=== PATIENT | male | born 1980 | race Caucasian/White ===

== ENCOUNTER 2020-01-08 13:11 | Inpatient (IN) | payer OTHER ==
[~2020-01-08] VITALS: Ht 177.8 cm; Wt 70.3 kg
[2020-01-08 14:36] LABS: BASOPHILS 0.4 % (0-2); HEMATOCRIT 38.2 % (42.0-54.0); HEMOGLOBIN 12.7 g/dL (13.5-17.5); IMMATURE GRANULOCYTES 0.6 % (0-5); LYMPHOCYTES 14.1 % (15-50); MCH 30.9 pg (26.0-34.0); MCHC 33.2 g/dL (31.0-37.0); MCV 92.9 fL (80.0-100.0); MEAN PLATELET VOLUME 9.6 fL (7.4-10.4); MONOCYTES 5.4 % (2-11); NEUTROPHILS 75.5 % (40-80); RBC 4.11 10x6/uL (4.20-6.10); RDW 12.4 % (11.5-14.5); WBC 8.3 10x3/uL (4.8-10.8)
[2020-01-08 14:39] LABS: PLATELET COUNT 284 10x3/uL (130-400)
[2020-01-08 14:43] LABS: ANION GAP 13.2 mmol/L (8-16); CALCIUM 8.9 mg/dL (8.5-10.1); CARBON DIOXIDE 23.8 mmol/L (21.0-32.0); CREATININE - SERUM 5.4 mg/dL (0.6-1.3)
[2020-01-08 14:47] LABS: ALBUMIN 3.2 g/dL (3.4-5.0); BILIRUBIN - TOTAL 0.16 mg/dL (0.2-1.3); PROTEIN - SERUM 7.8 g/dL (6.4-8.2)
--- NOTE | 2020-01-08 15:30 | NUR ---
URINE SENT TO THE LAB.
[2020-01-08 15:35] VITALS: BP 174/111
[2020-01-08 15:43] LABS: BILIRUBIN NEGATIVE (NEGATIVE); GLUCOSE NEGATIVE (NEGATIVE); KETONE NEGATIVE (NEGATIVE); NITRITE NEGATIVE (NEGATIVE); UROBILINOGEN NORMAL (NORMAL)
[2020-01-08 15:47] LABS: BACTERIA FEW /hpf (NEGATIVE); EPITHELIAL CELLS NSEEN /hpf (0-5); RED CELLS - URINE 0-5 /hpf (0-5); WHITE CELLS - URINE 0-5 /hpf (NEGATIVE)
[2020-01-08 15:50] LABS: UDS - AMPHET NEGATIVE QUAL (NEGATIVE); UDS - BARB NEGATIVE QUAL (NEGATIVE); UDS - BENZO NEGATIVE QUAL (NEGATIVE); UDS - COCAINE NEGATIVE QUAL (NEGATIVE); UDS - OPIATE NEGATIVE QUAL (NEGATIVE); UDS - PCP NEGATIVE QUAL (NEGATIVE); UDS - THC POSITIVE QUAL (NEGATIVE)
[2020-01-08 16:30] VITALS: BP 150/95
[2020-01-08 17:30] VITALS: BP 174/79
[2020-01-08 18:30] VITALS: BP 169/96
--- NOTE | 2020-01-08 18:45 | NUR ---
REPORT CALLED TO NICOLAS APPLE.
--- NOTE | 2020-01-08 19:12 | NUR ---
REPORT TO NICOLAS YANG.
[2020-01-08 20:00] VITALS: BP 151/82
--- NOTE | 2020-01-08 21:00 | NUR ---
ASSUMED CARE OF PATIENT, PATIENT TRANSFERRED TO ROOM, PATIENT AAOX4, NO DISTRESS NOTED, REDNESS TO RIGHT LOWER LEG, FAMILY X1 AT BS, WILL CONTINUE TO MONITOR PATIENT, IV INFUSING WITHOUT COMPLICATIONS, CALL LIGHT WITHIN REACH
[2020-01-08 21:23] VITALS: BP 151/82; BMI 22.2
[2020-01-09] VITALS: BP 143/83
[2020-01-09 01:22] LABS: INR 0.92 (0.85-1.17); PROTIME 12.3 SECONDS (11.6-15.0)
[2020-01-09 04:00] VITALS: BP 135/84
[2020-01-09 06:00] LABS: BASOPHILS 0.5 % (0-2); EOSINOPHILS 5.4 % (0-7); HEMATOCRIT 34.7 % (42.0-54.0); HEMOGLOBIN 11.6 g/dL (13.5-17.5); IMMATURE GRANULOCYTES 0.5 % (0-5); LYMPHOCYTES 26.9 % (15-50); MCHC 33.4 g/dL (31.0-37.0); MCV 92.8 fL (80.0-100.0); MEAN PLATELET VOLUME 9.6 fL (7.4-10.4); MONOCYTES 10.4 % (2-11); NEUTROPHILS 56.3 % (40-80); PLATELET COUNT 257 10x3/uL (130-400); RBC 3.74 10x6/uL (4.20-6.10); RDW 12.4 % (11.5-14.5); WBC 8.5 10x3/uL (4.8-10.8)
[2020-01-09 06:32] LABS: ALBUMIN 2.6 g/dL (3.4-5.0); BILIRUBIN - TOTAL 0.14 mg/dL (0.2-1.3); CALCIUM 8.5 mg/dL (8.5-10.1); CARBON DIOXIDE 23.7 mmol/L (21.0-32.0); CREATININE - SERUM 4.7 mg/dL (0.6-1.3); MAGNESIUM - SERUM 1.9 mg/dL (1.8-2.4); PROTEIN - SERUM 6.6 g/dL (6.4-8.2)
[2020-01-09 06:44] LABS: POTASSIUM - SERUM 3.7 mmol/L (3.5-5.1)
[2020-01-09 08:00] VITALS: BP 137/72
--- NOTE | 2020-01-09 09:00 | NUR ---
ASSESSMENT PER FLOW SHEET. PATIENT IS WITHOUT DISTRESS.MED PER MAR FOR HEADACHE.CALL LIGHT IN REACH
[2020-01-09 12:00] VITALS: BP 142/88
[2020-01-09 14:45] VITALS: Ht 177.8 cm; Wt 70.3 kg
[2020-01-09 15:35] LABS: BILIRUBIN NEGATIVE (NEGATIVE); GLUCOSE NEGATIVE (NEGATIVE); KETONE NEGATIVE (NEGATIVE); NITRITE NEGATIVE (NEGATIVE); UROBILINOGEN NORMAL (NORMAL)
[2020-01-09 15:40] LABS: CREATININE - URINE 35.7 mg/dL (30-125); PROTEIN - URINE 108.3 mg/dL (0.0-11.9)
[2020-01-09 16:00] VITALS: BP 148/86
--- NOTE | 2020-01-09 17:48 | NUR ---
REMAINS WITHOUT NEEDS,WITHOUT CHANGE. CONT PLAN OF CARE
--- NOTE | 2020-01-09 19:26 | NUR ---
ASSUMED CARE OF PATIENT AT 1900, PATIENT AAOX4, NO DISTRESS NOTED, REDNESS TO RIGHT FOOT, PATIENT OOB AD DINORA, DENIES NEEDS AT THIS TIME, WILL CONTINUE TO MONITOR PATIENT, CALL LIGHT WITHIN REACH
[2020-01-09 20:00] VITALS: BP 146/92
[2020-01-10 04:00] VITALS: BP 143/96
[2020-01-10 05:22] LABS: BASOPHILS 0.5 % (0-2); EOSINOPHILS 5.6 % (0-7); HEMATOCRIT 34.5 % (42.0-54.0); HEMOGLOBIN 11.4 g/dL (13.5-17.5); IMMATURE GRANULOCYTES 0.4 % (0-5); LYMPHOCYTES 23.5 % (15-50); MCV 93.8 fL (80.0-100.0); MEAN PLATELET VOLUME 9.5 fL (7.4-10.4); MONOCYTES 8.4 % (2-11); NEUTROPHILS 61.6 % (40-80); PLATELET COUNT 251 10x3/uL (130-400); RBC 3.68 10x6/uL (4.20-6.10); RDW 12.5 % (11.5-14.5); WBC 8.3 10x3/uL (4.8-10.8)
[2020-01-10 05:33] LABS: COMPLEMENT C4 18.2 mg/dL (17.4-52.2)
[2020-01-10 05:51] LABS: ALBUMIN 2.4 g/dL (3.4-5.0); ANION GAP 11.6 mmol/L (8-16); BILIRUBIN - TOTAL 0.18 mg/dL (0.2-1.3); CALCIUM 8.4 mg/dL (8.5-10.1); CARBON DIOXIDE 26.3 mmol/L (21.0-32.0); CREATININE - SERUM 4.4 mg/dL (0.6-1.3); MAGNESIUM - SERUM 1.9 mg/dL (1.8-2.4); PHOSPHOROUS 5.8 mg/dL (2.5-4.9); POTASSIUM - SERUM 3.9 mmol/L (3.5-5.1); PROTEIN - SERUM 6.1 g/dL (6.4-8.2)
[2020-01-10 06:11] LABS: ERYTHROCYTE SEDIMENTATION RATE 66 mm/hr (0-15)
--- NOTE | 2020-01-10 09:00 | NUR ---
ASSESSMENT PER FLOW SHEET. PATIENT IS WITHOUT DISTRESS.CALL LIGHT IN REACH
[2020-01-10 09:51] VITALS: BP 123/72
[2020-01-10 13:32] VITALS: BP 153/94
--- NOTE | 2020-01-10 16:11 | NUR ---
HAS REMAINED WITHOUT SIGNS OF PAIN. HAS AMBULATED IN [place].MONITOR
[2020-01-10 16:45] VITALS: BP 164/96
[2020-01-10 20:00] VITALS: BP 142/84
--- NOTE | 2020-01-11 03:04 | NUR ---
I have reviewed this patient and I concur with the Shift Assessment completed by the Licensed Practical Nurse today this shift.
[2020-01-11 04:00] VITALS: BP 122/64
[2020-01-11 05:58] LABS: BASOPHILS 0.5 % (0-2); EOSINOPHILS 5.9 % (0-7); HEMATOCRIT 31.5 % (42.0-54.0); HEMOGLOBIN 10.3 g/dL (13.5-17.5); IMMATURE GRANULOCYTES 0.5 % (0-5); LYMPHOCYTES 24.3 % (15-50); MCH 30.3 pg (26.0-34.0); MCHC 32.7 g/dL (31.0-37.0); MCV 92.6 fL (80.0-100.0); MEAN PLATELET VOLUME 9.4 fL (7.4-10.4); MONOCYTES 8.4 % (2-11); NEUTROPHILS 60.4 % (40-80); PLATELET COUNT 255 10x3/uL (130-400); RDW 12.6 % (11.5-14.5); WBC 8.4 10x3/uL (4.8-10.8)
[2020-01-11 06:19] LABS: ALBUMIN 2.4 g/dL (3.4-5.0); ANION GAP 10.5 mmol/L (8-16); CALCIUM 7.7 mg/dL (8.5-10.1); CREATININE - SERUM 4.6 mg/dL (0.6-1.3); MAGNESIUM - SERUM 1.9 mg/dL (1.8-2.4); POTASSIUM - SERUM 3.5 mmol/L (3.5-5.1); PROTEIN - SERUM 5.8 g/dL (6.4-8.2)
[2020-01-11 06:24] LABS: BILIRUBIN - TOTAL 0.07 mg/dL (0.2-1.3)
--- NOTE | 2020-01-11 07:15 | NUR ---
REC'D IN BED WALKING ROUND AWAKE AND ALERT. RESP EVEN AND UNLABORED WITH NO DISTRESS NOTED. CAN EXPRESS NEEDS AND WANTS. NO C/O NOTED OR VOICED. ASSESSMENT COMPLETED. C/L IN REACH AT BEDSIDE.
[2020-01-11 09:12] VITALS: BP 129/72
[2020-01-11 10:12] LABS: ANA REFLEX - DIRECT Negative (Negative)
[2020-01-11] MEDS ORDERED: FLORAJEN3 CAPS460 MG PO (10:59)
[2020-01-11] MEDS ORDERED: NICODERM CQ1 EAC3 TRANSDERM (10:59)
[2020-01-11] MEDS ORDERED: VITAMIN D5000 UNI1 PO (11:00)
[2020-01-11] MEDS ORDERED: AUGMENTIN 875-11 TAB PO (11:01)
--- NOTE | 2020-01-11 12:18 | NUR ---
DC HOME VOICE UNDERSTANDING OF DC ORDERS ALONG WITH AT BEDSIDE. STABLE CONDITION UPON DEPARTURE.
== END 2020-01-11 12:18 | disposition home or self-care (01) | DRG 602 ==
LOC: D.ER 13:11 → D.MS 17:59 → OBSVTIME 17:59 → D.MS 18:01
PROVIDERS: Family Medicine; Internal Medicine; ADMIT Family Medicine; ATTEND Family Medicine
DX: L03.115 Cellulitis of right lower limb (principal); N17.0 Acute kidney failure with tubular necrosis; N18.4 Chronic kidney disease, stage 4 (severe); I12.9 Hypertensive chronic kidney disease with stage 1 through stage 4 chronic kidney disease, or unspecified chronic kidney disease; I25.10 Atherosclerotic heart disease of native coronary artery without angina pectoris; D63.1 Anemia in chronic kidney disease; E87.6 Hypokalemia; F12.90 Cannabis use, unspecified, uncomplicated

== ENCOUNTER 2020-08-18 04:11 | Inpatient (IN) | payer OTHER ==
[~2020-08-18] VITALS: Ht 172.7 cm; Wt 70.9 kg
[2020-08-18] VITALS (9 sets, daily range): BP systolic 131–182; BP diastolic 11–111; Ht 172.7 cm; Wt 70.9 kg
[~2020-08-18 04:11] MED LIST: AUGMENTIN 875-11 TAB PO; CHLORTHALIDONE25 MG PO; FLORAJEN3 CAPS460 MG PO; LEVOFLOXACIN500 MG PO; METOPROLOL TART50 MG PO; NICODERM CQ1 EAC3 TRANSDERM; PROCARDIA XL60 MG PO; SODIUM BICARBO650 MG PO; VITAMIN D5000 UNI1 PO
[2020-08-18 04:55] LABS: BASOPHILS 0.6 % (0-2); IMMATURE GRANULOCYTES 0.3 % (0-5); LYMPHOCYTE ABS# 1.82 10x3/uL (1.32-3.57); LYMPHOCYTES 16.8 % (15-50); MCH 30.7 pg (26.0-34.0); MCHC 34.8 g/dL (31.0-37.0); MCV 88.3 fL (80.0-100.0); MEAN PLATELET VOLUME 8.8 fL (7.4-10.4); MONOCYTES 8.2 % (2-11); NEUTROPHIL ABS# 7.52 10x3/uL (1.78-5.38); NEUTROPHILS 69.1 % (40-80); RDW 13.3 % (11.5-14.5); WBC 10.9 10x3/uL (4.8-10.8)
[2020-08-18 05:05] LABS: PLATELET COUNT 214 10x3/uL (130-400)
[2020-08-18 05:06] LABS: HEMATOCRIT 26.5 % (42.0-54.0); HEMOGLOBIN 9.2 g/dL (13.5-17.5)
--- NOTE | 2020-08-18 05:28 | NUR ---
URINE SPEC TO LAB
[2020-08-18 05:32] LABS: ALKALINE PHOSPHATASE 70 U/L (30-120); ALT (SGPT) 20 U/L (10-68); CHLORIDE - SERUM 94 mmol/L (98-107); CREATINE KINASE 709 UL (21-232); CREATININE - SERUM 13.2 mg/dL (0.6-1.3); GLUCOSE 112 mg/dL (74-106); MAGNESIUM - SERUM 2.6 mg/dL (1.8-2.4); PROTEIN - SERUM 6.6 g/dL (6.4-8.2); SODIUM 135 mmol/L (136-145); THYROID STIMULATING HORMONE 1.23 uIU/mL (0.36-3.74); eGFR NON AFRICAN AMERICAN 4 mL/min (90-120)
[2020-08-18 05:33] LABS: CALC OSMOLALITY 304 mosm/kg (275-300); POTASSIUM - SERUM 2.9 mmol/L (3.5-5.1); UREA NITROGEN 107 mg/dL (7-18)
[2020-08-18 05:34] LABS: CALCIUM 6.3 mg/dL (8.5-10.1); PRO BNP 81886 pg/mL (0-125); TROPONIN-I 0.197 ng/mL (0.000-0.060)
[2020-08-18 05:35] LABS: CKMB 3.8 U/L (0.0-3.6)
[2020-08-18 05:40] LABS: BILIRUBIN NEGATIVE (NEGATIVE); KETONE NEGATIVE (NEGATIVE); NITRITE NEGATIVE (NEGATIVE); UROBILINOGEN NORMAL mg/dL (< 2)
[2020-08-18 05:41] LABS: UDS - AMPHET NEGATIVE QUAL (NEGATIVE); UDS - BARB NEGATIVE QUAL (NEGATIVE); UDS - BENZO NEGATIVE QUAL (NEGATIVE); UDS - COCAINE NEGATIVE QUAL (NEGATIVE); UDS - OPIATE NEGATIVE QUAL (NEGATIVE); UDS - PCP NEGATIVE QUAL (NEGATIVE); UDS - THC POSITIVE QUAL (NEGATIVE)
[2020-08-18 05:42] LABS: WHITE CELLS - URINE 0-5 HPF (0-1)
--- NOTE | 2020-08-18 06:17 | NUR ---
RECEIVED REPORT, WILL ASSUME CARE OFPT, IV-RFA, PLACED ON TELEMTRY, HAS BEEN WITH OUT HOME FOR A LEAST 3 WEEKS, ASKING FOR A SNACK, PROVIDED APPLESAUCE AND GHAMCRACKERS, BED IS LOW, SRX2, CALL LIGHT IN REACH, WILL CONTINUE PLAN OF CARE
--- NOTE | 2020-08-18 07:20 | NUR ---
RECIEVE REPORT. ALERT AND ORIENTED X4. UP TO BATHROOM. DENIES ANY NEEDS. CONTINUE PLAN OF CARE AND SAFETY PRECAUTIONS.
[2020-08-18 09:58] LABS: CKMB 3.5 U/L (0.0-3.6); CREATINE KINASE 686 UL (21-232)
--- NOTE | 2020-08-18 10:26 | NUR ---
ALERT AND ORIENTED X4. RESTING IN BED. NOTIFY OF ELEVATED TROPONIN 0.170. CONTINUE PLAN OF CARE AND SAFETY PRECAUTIONS. WORK ORDER PLACED PER PATIENT REQUEST FOR AC NOT WORKING.
[2020-08-18 14:35] LABS: PHOSPHOROUS 12.9 mg/dL (2.5-4.9)
[2020-08-18 14:59] LABS: IRON 52 ug/dl (35-150)
[2020-08-18 15:00] LABS: % SATURATION 13 % (15-55); TOTAL IRON BIND CAPACITY 375 ug/dl (260-445); UNSAT IRON BIND CAPACITY 323 ug/dl (150-375)
[2020-08-18 16:26] LABS: CARBON DIOXIDE 21.3 mmol/L (21.0-32.0); CHLORIDE - SERUM 94 mmol/L (98-107); CKMB 3.5 U/L (0.0-3.6); CREATINE KINASE 663 UL (21-232); CREATININE - SERUM 13.7 mg/dL (0.6-1.3); GLUCOSE 111 mg/dL (74-106); MAGNESIUM - SERUM 2.4 mg/dL (1.8-2.4); POTASSIUM - SERUM 3.1 mmol/L (3.5-5.1); SODIUM 133 mmol/L (136-145); eGFR NON AFRICAN AMERICAN 4 mL/min (90-120)
[2020-08-18 16:36] LABS: CALC OSMOLALITY 300 mosm/kg (275-300); UREA NITROGEN 109 mg/dL (7-18)
[2020-08-18 16:37] LABS: CALCIUM 6.4 mg/dL (8.5-10.1); TROPONIN-I 0.169 ng/mL (0.000-0.060)
--- NOTE | 2020-08-18 20:05 | NUR ---
INITIAL ROUNDS AND ASSESSMENT COMPLETED. PT RESTING IN BED. NS @ 100ML/HR INFUSING TO RFA. NONLABORED RESPIRATIONS ON ROOM AIR. SR PER TELEMETRY. PT C/O HEADACHE THAT WILL NOT GO AWAY. HAS ALREADY RECIEVED TYLENOL. CHECKING CURRENT BP, INDICATIONS THAT BP HAS REMAINED ELEVATED ALL DAY. WILL THEN CALL ANP DETAIL TECHNICIAN AND SEE IF NEW PAIN MED CAN BE OBTAINED.
--- NOTE | 2020-08-18 22:26 | NUR ---
SPOKE WITH VANE JAEGER AND REPORTED PT'S CONTINOUS DAY LONG HEADACHE THAT EVEN TYLENOL DOES NOT IMPROVE. RECIEVED NEW ORDERS.
[2020-08-18 22:27] LABS: CKMB 3.3 U/L (0.0-3.6); CREATINE KINASE 560 UL (21-232)
[2020-08-18 22:35] LABS: TROPONIN-I 0.179 ng/mL (0.000-0.060)
--- NOTE | 2020-08-18 23:12 | NUR ---
MEDICATED WITH NORCO 5/325 FOR CONTINUED HEADACHE. IVF INFUSING. POTASSIUM RIDER INFUSING DUE TO PATIENT BEING OFF IV WHILE HE WAS TAKING A SHOWER.
[2020-08-19] VITALS: BP 139/85
--- NOTE | 2020-08-19 03:25 | NUR ---
PT ASKING FOR WATER/SNACK. EXPLAINED THAT HE IS NPO UNTIL SEEN BY SURGEON FOR POSSIBLE PD CATH PLACEMENT.
[2020-08-19 06:09] VITALS: BP 135/83
[2020-08-19 07:07] LABS: BASOPHILS 0.5 % (0-2); EOSINOPHILS 4.6 % (0-7); HEMATOCRIT 27.2 % (42.0-54.0); HEMOGLOBIN 9.4 g/dL (13.5-17.5); IMMATURE GRANULOCYTES 0.2 % (0-5); LYMPHOCYTE ABS# 1.75 10x3/uL (1.32-3.57); LYMPHOCYTES 20.2 % (15-50); MCH 30.5 pg (26.0-34.0); MCHC 34.6 g/dL (31.0-37.0); MCV 88.3 fL (80.0-100.0); MEAN PLATELET VOLUME 9.3 fL (7.4-10.4); MONOCYTES 7.3 % (2-11); NEUTROPHIL ABS# 5.82 10x3/uL (1.78-5.38); NEUTROPHILS 67.2 % (40-80); RBC 3.08 10x6/uL (4.20-6.10); RDW 13.7 % (11.5-14.5); WBC 8.7 10x3/uL (4.8-10.8)
[2020-08-19 07:11] LABS: PLATELET COUNT 259 10x3/uL (130-400)
[2020-08-19 07:16] LABS: ALBUMIN 2.6 g/dL (3.4-5.0); BILIRUBIN - TOTAL 0.28 mg/dL (0.2-1.3); CARBON DIOXIDE 18.3 mmol/L (21.0-32.0); MAGNESIUM - SERUM 2.4 mg/dL (1.8-2.4); PROTEIN - SERUM 6.2 g/dL (6.4-8.2)
[2020-08-19 07:36] LABS: ANION GAP 23.6 mmol/L (8-16)
[2020-08-19 07:38] LABS: CALCIUM 6.9 mg/dL (8.5-10.1); POTASSIUM - SERUM 2.9 mmol/L (3.5-5.1)
--- NOTE | 2020-08-19 07:48 | NUR ---
CRITICAL LAB CALLED TO [facility] AT THIS TIME. NEW ORDERS RECEIVED AND READ BACK.
--- NOTE | 2020-08-19 08:11 | NUR ---
AM MEDS GIVEN ALONG WITH ELECTROLYE ORDER. PT LYING IN BED WITH EYES CLOSED, AWAKENS EASILY. IV INFUSING WITHOUT DIFFICULTY. NO NEEDS VOICED. CLWR.
[2020-08-19 08:22] VITALS: BP 134/86
[2020-08-19 08:39] LABS: INR 1.15 (0.85-1.17); PROTIME 13.6 SECONDS (11.6-15.0)
[2020-08-19 12:00] VITALS: BP 119/80
--- NOTE | 2020-08-19 13:10 | NUR ---
PT LYING ON LEFT SIDE, RR EVEN NON LABORED. PT EYES CLOSED AND AUDIBLE SNORING NOTED. WILL CONTINUE TO MONITOR, CLWR.
[2020-08-19 15:00] VITALS: BP 121/86
--- NOTE | 2020-08-19 16:45 | NUR ---
MEDS GIVEN PER EMAR. PT AWAKE AND ALERT. PT DENIES ANY NEEDS OR PAIN AT THIS TIME. DINNER TRAY SERVED. CLWR.
[2020-08-19 19:44] VITALS: BP 127/80
[2020-08-20 02:51] LABS: BASOPHILS 0.5 % (0-2); EOSINOPHILS 5.6 % (0-7); HEMATOCRIT 24.9 % (42.0-54.0); HEMOGLOBIN 8.4 g/dL (13.5-17.5); IMMATURE GRANULOCYTES 0.3 % (0-5); LYMPHOCYTE ABS# 1.73 10x3/uL (1.32-3.57); LYMPHOCYTES 22.1 % (15-50); MCH 30.2 pg (26.0-34.0); MCHC 33.7 g/dL (31.0-37.0); MCV 89.6 fL (80.0-100.0); MEAN PLATELET VOLUME 8.9 fL (7.4-10.4); MONOCYTES 8.8 % (2-11); NEUTROPHIL ABS# 4.91 10x3/uL (1.78-5.38); NEUTROPHILS 62.7 % (40-80); PLATELET COUNT 216 10x3/uL (130-400); RBC 2.78 10x6/uL (4.20-6.10); RDW 13.6 % (11.5-14.5); WBC 7.8 10x3/uL (4.8-10.8)
[2020-08-20 03:08] LABS: ALBUMIN 2.3 g/dL (3.4-5.0); BILIRUBIN - TOTAL 0.19 mg/dL (0.2-1.3); CALCIUM 7.1 mg/dL (8.5-10.1); CARBON DIOXIDE 19.3 mmol/L (21.0-32.0); CREATININE - SERUM 13.4 mg/dL (0.6-1.3); MAGNESIUM - SERUM 2.4 mg/dL (1.8-2.4); PROTEIN - SERUM 5.6 g/dL (6.4-8.2)
[2020-08-20 03:22] LABS: ANION GAP 18.4 mmol/L (8-16); POTASSIUM - SERUM 3.7 mmol/L (3.5-5.1)
--- NOTE | 2020-08-20 03:24 | NUR ---
I have reviewed this patient and I concur with the Shift Assessment completed by the Licensed Practical Nurse today this shift.
[2020-08-20 04:04] VITALS: BP 131/75
[2020-08-20 08:59] VITALS: BP 133/81
--- NOTE | 2020-08-20 09:06 | NUR ---
AM MEDS GIVEN WITH SMALL SIP OF WATER. PT SITTING UP IN BED, RR EVEN NON LABORED ON ROOM AIR. PT AWAKE AND ALERT, DENIES ANY PAIN OR NEEDS AT THIS TIME. CLWR.
[2020-08-20 10:12] LABS: HEPATITIS C ANTIBODY <0.1 S/CO RAT (0.0-0.9)
[2020-08-20 12:19] VITALS: BP 130/70
--- NOTE | 2020-08-20 12:55 | NUR ---
PREOP MEDS GIVEN AT THIS TIME PER EMAR. PT AWAKENS EASILY, NO QUESTIONS OR NEEDS VOICED. CLWR.
--- NOTE | 2020-08-20 13:15 | NUR ---
PT TAKEN BY OR AT THIS TIME.
--- NOTE | 2020-08-20 15:43 | NUR ---
PT ARRIVED FROM SURGERY AT THIS TIME. PT AWAKENS EASILY, APPEARS GROGGY. PT RR EVEN NON LABORED, TELE PLACED. NO NEEDS VOICED AT THIS TIME. CLWR.
[2020-08-20] MEDS ORDERED: COREG12.5 MG PO (15:53)
[2020-08-20] MEDS ORDERED: NICODERM CQ1 EAC3 TRANSDERM (15:53)
[2020-08-20] MEDS ORDERED: COZAAR50 MG PO (15:53)
[2020-08-20] MEDS ORDERED: ROCALTROL0.25 MCG PO (15:54)
[2020-08-20] MEDS ORDERED: PHOSLO667 MG PO (15:54)
[2020-08-20] MEDS ORDERED: Senokot-S Tablet PO (15:55)
[2020-08-20 17:41] VITALS: BP 139/88
--- NOTE | 2020-08-20 18:25 | NUR ---
HOME vs Care IV HHS. CM met with patient to complete DC plan and to evaluate needs. Patient stated that he lives alone and is unemployed. Patient has Medicaid and will need Peritoneal Dialysis. At discharge, the patient plans to return home and feels this is a safe discharge. CM discussed availability of home health, rehab services, and medical equipment. Patient declined SNF, IPR, and DME. Patient stated that he does not feel that he will need Home Health but is unsure at this time. Patient stated that if his physician recommends HHS, then Care IV HHS would be his first choice. ELOY for Care IV HHS signed and placed on chart. Patient stated that he will apply for social security soon to help with medical costs. Patient stated that his renal physician plans for him to follow up in the clinic for peritoneal dialysis training for the next 3 - 4 weeks. Patient voiced no other needs at this time and is satisfied with DC plan. Transportation provider at discharge will be with Jamaal Coyle (former spouse). CM will continue to follow and will assist as needed with dc plans/needs.
--- NOTE | 2020-08-20 19:06 | NUR ---
LYING IN BED AWAKE, ALERT, ORIENTED. RESP EVEN AND UNLABORED ON RA. NO DISTRESS NOTED, DENIES ANY NEEDS.
--- NOTE | 2020-08-20 19:26 | NUR ---
Spoke with Janay Ron regarding outpatient peritoneal dialysis. Janay stated that she will fax the records to the clinic tonight so that the patient can be ready for DC tomorrow. Janay stated that the patient will need a covid test before goint to outpatient dialysis. The patient will need to proceed directly to the clinic post discharge for peritoneal dialysis. Janay further stated that she will contact CM team in am. CM will continue to follow and will assist as needed with dc plans/needs.
[2020-08-20 21:13] VITALS: BP 116/75
[2020-08-21 04:53] VITALS: BP 146/87
[2020-08-21 05:00] LABS: BASOPHILS 0.2 % (0-2); EOSINOPHILS 0 % (0-7); HEMATOCRIT 26.8 % (42.0-54.0); IMMATURE GRANULOCYTES 0.3 % (0-5); LYMPHOCYTE ABS# 0.45 10x3/uL (1.32-3.57); LYMPHOCYTES 6.9 % (15-50); MCH 30.6 pg (26.0-34.0); MCHC 33.6 g/dL (31.0-37.0); MCV 91.2 fL (80.0-100.0); MEAN PLATELET VOLUME 9.5 fL (7.4-10.4); MONOCYTES 1.8 % (2-11); NEUTROPHILS 90.8 % (40-80); RBC 2.94 10x6/uL (4.20-6.10); RDW 13.6 % (11.5-14.5); WBC 6.5 10x3/uL (4.8-10.8)
[2020-08-21 05:14] LABS: PLATELET COUNT 274 10x3/uL (130-400)
[2020-08-21 05:30] LABS: ALBUMIN 2.5 g/dL (3.4-5.0); ANION GAP 21.1 mmol/L (8-16); BILIRUBIN - TOTAL 0.23 mg/dL (0.2-1.3); CALCIUM 7.8 mg/dL (8.5-10.1); CARBON DIOXIDE 17.5 mmol/L (21.0-32.0); CREATININE - SERUM 13.2 mg/dL (0.6-1.3); MAGNESIUM - SERUM 2.4 mg/dL (1.8-2.4); PROTEIN - SERUM 5.9 g/dL (6.4-8.2)
[2020-08-21 05:46] LABS: POTASSIUM - SERUM 4.6 mmol/L (3.5-5.1)
--- NOTE | 2020-08-21 07:30 | NUR ---
PT LYING IN BED WITH EYES CLOSED. RAISES EASILY TO VERBAL STIMULI. RESP EVEN AND UNLABORED. PD CATH TO ABD. DRESSING C/D/I. SCDs IN PLACE. PT DENIES ANY NEEDS AT THIS TIME. CALL LIGHT AND WATER WITHIN REACH. BED IN LOWEST POSITION. SIDE RAILS X2.
[2020-08-21 08:00] VITALS: BP 153/85
[2020-08-21 09:03] LABS: SARS-CoV-2 ANTIGEN NEGATIVE- SARS-COV-2 (NEGATIVE)
[2020-08-21 11:00] VITALS: BP 150/81
--- NOTE | 2020-08-21 12:24 | NUR ---
I have reviewed this patient and I concur with the Shift Assessment completed by the Licensed Practical Nurse today this shift.
--- NOTE | 2020-08-21 14:30 | NUR ---
PT DC HOME WITH FAMILY MEMBER. DC INSTRUCTIONS PROVIDED VERBALLY AND WRITTEN. PT VERBALIZED UNDERSTANDING
[2020-08-21 15:00] VITALS: BP 151/86
--- NOTE | 2020-08-22 12:02 | MORECARE ---
CASE MANAGEMENT DISCHARGE SUMMARY PATIENT: ARBEN PIERCE UNIT: [id number] ADM DATE: 08/18/20 AGE: 40 : 78 SEX: M ROOM/BED: D.2111 AUTHOR: REGINALD,ARIANNA PHYSICIAN: REFERRING PHYSICIAN: VELMA WHITE MD DATE OF SERVICE: 08/22/20 Case Management Discharge Planning Summary COMMENTS ENTERED DATE: 08/20/20 19:09 CT COMMENT TYPE: Discharge Planning REVIEWER: Ricardo Zhou Spoke with Janay Ron regarding outpatient peritoneal dialysis. Janay stated that she will fax the records to the clinic tonight so that the patient can be ready for DC tomorrow. Janay stated that the patient will need a COVID test before going to outpatient dialysis. The patient will need to proceed directly to the clinic post discharge for peritoneal dialysis. Janay further stated that she will contact CM team in am. CM will continue to follow and will assist as needed with dc plans/needs. ENTERED DATE: 08/20/20 19:05 CT COMMENT TYPE: Discharge Planning REVIEWER: Ricardo Zhou HOME vs Care IV HHS. CM met with patient to complete DC plan and to evaluate needs. Patient stated that he lives alone and is unemployed. Patient has Medicaid and will need Peritoneal Dialysis. At discharge, the patient plans to return home and feels this is a safe discharge. CM discussed availability of home health, rehab services, and medical equipment. Patient declined SNF, IPR, and DME. Patient stated that he does not feel that he will need Home Health but is unsure at this time. Patient stated that if his physician recommends HHS, then Care IV HHS would be his first choice. ELOY for Care IV HHS signed and placed on chart. Patient stated that he will apply for social security soon to help with medical costs. Patient stated that his renal physician plans for him to follow up in the clinic for peritoneal dialysis training for the next 3 - 4 weeks. Patient voiced no other needs at this time and is satisfied with DC plan. Transportation provider at discharge will be with Jamaal Pierce (former spouse). CM will continue to follow and will assist as needed with dc plans/needs. DCP REVIEW SUMMARY ANTICIPATED D/C DATE: EXPECTED LOS : CASE STATUS: DCP Initiated INITIAL REVIEW: 08/20/2020 INITIAL REVIEWER: Ricardo Zhou FINAL DISCHARGE DISPOSITION: : FINAL REVIEWER: FINAL REVIEW DATE: DCP Focus Questions & Answers DCP REV -DCP Review Added on: 08/20/20 7:01 pm QUESTION: ANSWER DCP Evaluation Patient gives permission to discuss discharge plans with: (name, relationship and number) : JAMAAL PIERCE, FORMER SO, Physical Status: : Independent with ADL's Baseline cognitive status: : *Oriented to person, place, situation, time and present Patient's ability to cope with chronic illness : d. No chronic illness Family / Caregiver's ability to cope with chronic illness: : a. Adequate (ability to meet patient's medical needs, ensures patient attends medical appts.) Living Arrangements: : Home Alone with No Support Living arrangements comments: : N/A Facility / Agency name and contact information from Question 3 (if applicable): : N/A Medication Management: : Patient states cannot afford medications Medication Management: : Patient states they do have transportation to [facility] medications Medication Management: : Patient states can read and understand medication labels Pharmacy name(s): : [facility] Does Patient have transportation to get home and to follow-up medical appointments when discharged from the hospital? : Yes Comments: : N/A Does the patient have electricity at home? : Yes Comments (electricity): : N/A Does the patient have running water in their house? : Yes Comment (running water): : N/A Equipment in use: : None Other Equipment comments: : N/A Equipment agency name and contact information: : N/A Mental health screen: : No mental health history Mental health provider name and contact information: : N/A Psychosocial status: : Independent adult (18-64) Psychosocial other comments: : N/A Abuse/Neglect: : None Abuse/neglect comments: : N/A Resources / Services in place: : None Contact information for resources in use: : N/A Problems identified by the patient regarding discharge: : N/A Patient's current cognitive status: : *Oriented to person, place, situation, time and present Functional screen assessment: : No issues identified Functional screen comments: : N/A Patient with capacity for self-care or can be cared for in same environment as prior to hospitalization? : Yes Family / Caregiver's ability to cope with chronic illness: : a. Adequate (ability to meet patient's medical needs, ensures patient attends medical appts.) Does the patient have the ability to pay for or attain post discharge needs / services? : Yes Is there a likelihood that the patient will require additional services to return to the preadmission environment? : No Results of this evaluation have been discussed with: : Patient Comments: : N/A Patient and/or caregiver agree upon recommended discharge plan? : Yes Alternate discharge plan (if recommended plan not agreed upon by patient and/or caregiver): : N/A Equipment needed for post hospitalization: : None Other Equipment comments: : N/A Physical environment modification needed / anticipated for discharge: : No Physical environment referral comments (if applicable): : N/A Planned post hospital services available for patient? : Yes Would patient like to participate in any Care Coordination programs (if applicable): : Not applicable Other Care Coordination programs/comments: : OUTPATIENT PERITONEAL DIALYSIS COORDINATED DCP Re-evaluation Would patient like to participate in any Care Coordination programs (if applicable): : Not applicable PROVIDER NETWORKING REVIEW DATE: 08/20/2020 SERVICE TYPE: Home Health Care (Non-Skilled) REVIEWER: Ricardo Zhou PROVIDER: FINAL PROVIDER? : FINAL DATE/TIME: CT REVIEW DATE: 08/21/2020 SERVICE TYPE: Home Health Care REVIEWER: Ricardo Zhou PROVIDER: FINAL PROVIDER? : FINAL DATE/TIME: CT REVIEW DATE: 08/21/2020 SERVICE TYPE: Home Health Care (Non-Skilled) REVIEWER: Ricardo Zhou PROVIDER: FINAL PROVIDER? : FINAL DATE/TIME: CT PATIENT: ARBEN PIERCE ENCOUNTER: [id number] MEDICAL RECORD#: [id number] ADMISSION DATE: 08/18/2020 DISCHARGE DATE: 08/21/2020 ATTENDING MD: VELMA SIMPSON : AGE: 40 MARITAL STATUS: S DC PLAN ID: [id number] FACILITY: [facility] PRINTED ON: 08/22/20 12:02 CT All edits/amendments must be made on the electronic document DICTATION DATE: 08/22/201201 TIMBER SUPERVISOR: DOM 08/22/201201 RPT#: [id number] DC DATE:08/21/20 STATUS: DIS IN [facility] [address] [place] [address] END OF REPORT
--- NOTE | 2020-08-22 17:23 | OP ---
PATIENT NAME: ARBEN PIERCE MEDICAL RECORD: [id number] :76 LOCATION:D.M2 D.2110 ADMISSION DATE:08/18/20 SURGEON: ARBEN WEEMS MD DATE OF OPERATION: 08/20/2020 PREOPERATIVE DIAGNOSES: End-stage renal disease -- [id number] renal insufficiency and uncontrolled hypertension. POSTOPERATIVE DIAGNOSES: End-stage renal disease -- [id number] renal insufficiency and uncontrolled hypertension. OPERATION PERFORMED: Laparoscopic implantation of a peritoneal dialysis catheter. SURGEON: Arben Weems MD ANESTHESIA: General endotracheal per HOG KILLER PREOPERATIVE NOTE: This 40-year-old noncompliant gentleman with a long history of severe hypertension, basically was admitted to the hospital with malignant hypertension, [id number] renal insufficiency. He needs to start dialysis and Dr. Smith has asked me to place a peritoneal dialysis catheter that the patient could then be discharged with to begin outpatient urgent PD. DESCRIPTION OF PROCEDURE: Under general endotracheal anesthesia, the patient was prepped and draped in sterile manner. Yun catheter was not inserted. I used the Merit dialysis catheter to measure the distance above the symphysis pubis to place in the left paramedian transverse incision. Electrocautery was used for hemostasis and the incision was carried down to the anterior rectus sheath where a pursestring suture of 0 Vicryl was placed at the site of anticipated cannulation. I then inserted a 5-mm 0-degree laparoscope through a 5 mm port through a small incision in the left upper quadrant developed a pneumoperitoneum and then exchanged out for a 30-degree scope. I found that there were no adhesions. There was no evidence of any injury to surrounding tissues from the injury and there were no hernias and there was no excessive or problematic omentum in the lower abdomen. I then injected Marcaine 0.25% with epinephrine into the rectus muscle and just beneath the planned cannulation site and I then inserted a Covidien 7/8 step laparoscopic trocar through the anterior rectus sheath and then parallel to within the preperitoneal space before headed down towards the midline before entering the peritoneal cavity through that and then I inserted the PD catheter. I chose a Merit flex neck classic ARC dual cuff coil adult standard size peritoneal catheter. This was inserted. The trocar removed. Another 5 mm port was inserted through a left lower quadrant stab incision and this was used to help deliver the small bowel from the pelvis and assure proper placement of the catheter with the coiled segment behind the urinary bladder below the level of the pubis. The catheter was then brought out through a curved subcutaneous tunnel to an exit site in the left lower quadrant. The catheter was then attached to a transfer set and the insufflated carbon dioxide was allowed to escape and insufflation was discontinued and 1000 cc of saline was rapidly run into the peritoneal cavity. Then, the patient was placed in a mild reverse Trendelenburg position and fluid returned from the peritoneal catheter quite easily and rapidly. The ports were then removed. The paramedian incision was infiltrated with additional Marcaine and then closed with interrupted inverted 3-0 Vicryl OPERATIVE REPORT [id number] ARBEN PIERCE and running intracuticular 4-0 Stratafix. The 2 trocar sites were closed with interrupted inverted 3-0 Vicryl and Dermabond glue. Dermabond glue was used on the paramedian incision as well. These 3 sites were dressed with Maxorb AG, Tegaderm, Cavilon skin prep. The catheter at the exit site was dressed with a Biopatch and then coiled and covered with an island dressing and further secured with a small amount of Primapore tape. At that point, the patient was awakened from his anesthetic and in stable condition taken to the recovery room. There was no blood loss during the procedure. Sponges, instruments, and needles were accounted for. No drain other than the peritoneal catheter was employed. Note that prior to completing the procedure, I did flush the catheter with 40 cc of heparin lock solution 100 units per cc and then clamped and capped the catheter. TRANSINT:[id number] Voice Confirmation ID: [id number] DOCUMENT ID: [id number] ARBEN WEEMS MD at 1723 CC: NICKIE SMITH MD [id number] DICTATION DATE: 08/20/20 1545 TRAFFIC SURVEY TECHNICIAN: 08/20/20 2019 DIS IN 08/21/20 [id number] [place] [address]
== END 2020-08-21 16:50 | disposition home or self-care (01) | DRG 673 ==
LOC: D.ER 04:11 → D.M2 05:14
PROVIDERS: Emergency Medicine; Family Medicine; Internal Medicine Nephrology; Surgery; ADMIT Family Medicine; ATTEND Family Medicine
PROC: 0WHG43Z Insertion of Infusion Device into Peritoneal Cavity, Percutaneous Endoscopic Approach (ICD-10-PCS; principal; 2020-08-20 13:00)
DX: N17.9 Acute kidney failure, unspecified (principal); I50.33 Acute on chronic diastolic (congestive) heart failure; I21.A1 Myocardial infarction type 2; I13.0 Hypertensive heart and chronic kidney disease with heart failure and stage 1 through stage 4 chronic kidney disease, or unspecified chronic kidney disease; N18.9 Chronic kidney disease, unspecified; I25.10 Atherosclerotic heart disease of native coronary artery without angina pectoris; E87.6 Hypokalemia; E83.51 Hypocalcemia; E83.41 Hypermagnesemia; E83.39 Other disorders of phosphorus metabolism; D63.1 Anemia in chronic kidney disease; R00.0 Tachycardia, unspecified; N18.5 Chronic kidney disease, stage 5; I16.0 Hypertensive urgency; Z91.14 Patient's other noncompliance with medication regimen

== ENCOUNTER 2020-10-02 17:01 | Inpatient (IN) | payer OTHER ==
[~2020-10-02] VITALS: Ht 172.7 cm; Wt 75.3 kg
--- NOTE | ~2020-10-02 | HEMODYNAMI ---
PATIENT:ARBEN PIERCE MEDICAL RECORD: [id number] : 76 LOCATION:[facility] D.2129 [facility]# [id number] ADMISSION DATE: 10/02/20 Generatedon:110:12 Patient name: ARBEN PIERCE Patient #: [id number] : 1980 Date of study: 10/11/2020 Page: Of Hemodynamic Procedure Report Patient Data Patient Demographics Procedure consent was obtained First Name: ARBEN Gender: Male Last Name: STAN : 1980 Middle Initial: JERARDO Age: 40 year(s) Patient #: [id number] Race: Unknown SSN: [id number] Additional ID: [id number] Contact details [address]: [address] [place] [address] State: [place] City: [place] Zip code: [address] Past Medical History Allergies Allergen Reaction Date Comments Reported Other allergy 10/08/2020 sumatriptan, iodine Iodine 10/11/2020 Other allergy 10/11/2020 Sumatryptan Admission Admission Data Admission Date: 10/02/2020 Admission Time: 19:27 Admit Source: Emergency Insurance Payor: Private department health insurance Room #: D.2129 Height (in.): 67.72 BSA: 1.88 (m2) Height (cm.): 172 BMI: 25.35 (kg/m2) Weight (lbs.): 165.35 Weight (kg.): 75 Lab Results Lab Result Date: 10/09/2020 Lab Result Time: 0:00 Biochemistry Name Units Result Min Max Creatinine mg/dl 6.8 --(----)-* 0.6 1.3 Procedure Procedure Types Cath Procedure Diagnostic Procedure LHC LHC w/Coronaries w/Grafts CIERRA Sedation Charges Moderate Sedation 25-39 minutes Procedure Description Procedure Date Procedure Date: 10/11/2020 Procedure Start Time: 9:56 Procedure End Time: 10:10 Procedure Staff Name Function Shankar Aguero MD Performing Physician Deneen Calderon RT Monitor Hiwot Butt RN Nurse Arsenio Cottrell RN Nurse Mounika Magallon RT [facility] Andre Ghotra MD Additional personnel Procedure Data Cath Procedure Fluoroscopy Diagnostic fluoroscopy Total fluoroscopy Time: 1.6 time: 1.6 min min Diagnostic fluoroscopy Total fluoroscopy dose: 504 dose: 504 mGy mGy Contrast Material Contrast Material Type Amount (ml) Isovue 370 64 Entry Location Entry Primary Successful Side Size Upsize Upsize Entry Closure Succes sful Closure Location (Fr) 1 (Fr) 2 (Fr) Remarks Device Remarks Femoral Right 5 Fr Exoseal artery Estimated blood loss: 5 ml Diagnostic catheters Device Type Used For End Catheter Placement MULTIPACK JL 4.0 5Fr Left Coronary catheter Angiography MULTIPACK 3DRC 5Fr Right Coronary catheter Angiography MULTIPACK 3DRC 5Fr SVG Angiography catheter MULTIPACK 3DRC 5Fr Internal mammary catheter arteriography MULTIPACK Pigtail 5 Fr LV Angiography catheter Procedure Complications No complications Procedure Medications Medication Administration Route Dosage Oxygen etCO2 Nasal cannula 2 l/min 0.9% NaCl I.V. Benadryl I.V. 50 mg Hurricaine Chaplin P.O. 1 Sprays Refer to Anesthesia Notes for Sedation Medications Heparin Flush Bag added to field 2 bags (1000units/500ml NS) Lidocaine 2% added to field 20 Fentanyl I.V. 50 mcg Versed I.V. 1 mg Versed I.V. 1 mg Fentanyl I.V. 50 mcg Fentanyl I.V. 50 mcg Versed I.V. 1 mg Versed I.V. 1 mg Fentanyl I.V. 50 mcg Hemodynamics Rest BSA: 1.88 (m2) HGB: 12.8 (g/dl) O2 Consumption: Estimated: 231.77 (ml/min) O2 Co nsumption indexed: Estimated:123.28 (ml/min/m) Heart Rate: 74 (bpm) Pressure Samples Time Site Value (mmHg) Purpose Heart Use Rate(bpm) 10:04 LV 123/1,6 Snapshot 81 Snapshots Pre Cath Intra NCS Post Cath Vital Signs Time Heart Resp SPO2 etCO2 NIBP (mmHg) Rhythm Pain Sedation Rate (ipm) (%) (mmHg) Status Level (bpm) 9:14:48 76 14 97 31.7 163/99(134) NSR 0 (11) 10(A) , No pain 9:19:06 78 17 98 25.7 154/96(126) NSR 0 (11) 10(A) , No pain 9:23:43 75 13 98 33.2 172/67(146) NSR 0 (11) 10(A) , No pain 9:28:05 80 14 100 16.6 132/85(107) NSR 0 (11) 10(A) , No pain 9:32:21 81 13 100 15.8 124/81(101) NSR 0 (11) 9(A) , No pain 9:36:35 83 14 100 22.6 120/76(94) NSR 0 (11) 9(A) , No pain 9:40:49 88 18 100 21.1 116/86(103) NSR 0 (11) 9(A) , No pain 9:44:55 86 20 100 19.6 135/96(111) NSR 0 (11) 9(A) , No pain 9:49:09 79 13 99 27.9 133/91(115) NSR 0 (11) 9(A) , No pain 9:53:23 77 18 97 27.2 132/84(109) NSR 0 (11) 9(A) , No pain 9:57:35 84 18 97 26.4 144/86(117) NSR 0 (11) 9(A) , No pain 10:01:46 84 12 94 36.3 141/91(116) NSR 0 (11) 9(A) , No pain 10:06:00 85 13 94 37.7 138/96(113) NSR 0 (11) 9(A) , No pain 10:10:14 83 14 99 21.9 140/85(116) NSR 0 (11) 10(A) , No pain Medications Time Medication Route Dose Verified Delivered Reason Notes E ffectiveness by by 9:16:13 0.9% NaCl I.V. kvo Shankar Arsenio Per pt is on ml/hr [facility] Cottrell RN physician dialysis 9:16:14 Oxygen etCO2 2 Shankar Arsenio used for Nasal l/min [facility] L[facility] Cottrell RN procedure cannula 9:17:10 Benadryl I.V. 50 mg Shankar Arsenio used for for [facility] L[facility] Cottrell RN procedure preop iodine allergy 9:19:43 Hurricaine Chaplin P.O. 1 Shankar Arsenio Per Sprays [facility] Lai Cottrell RN physician 9:19:52 Refer to Shankar Arsenio Anesthesia Notes [facility] Lai Cottrell RN for Sedation MD Medications 9:37:10 Heparin Flush added 2 bags Shankar Chaparro used for Bag to [facility] procedure (1000units/500ml field MD CROOK NS) 9:37:30 Lidocaine 2% added 20ml Shankar Chaparro for local to vial [facility] anesthetic field MD CROOK 9:48:16 Versed I.V. 1 mg Shankar Arsenio for [facility] Lai Cottrell RN sedation 9:48:22 Fentanyl I.V. 50 mcg Shaknar Arsenio for [facility] L[facility] Cottrell RN sedation 9:52:58 Fentanyl I.V. 50 mcg Shankar Arsenio for [facility] L[facility] Cottrell RN sedation 9:53:06 Versed I.V. 1 mg Shankar Arsenio for [facility] Lai Cottrell RN sedation 9:56:41 Versed I.V. 1 mg Shankar Arsenio for [facility] Lai Cottrell RN sedation 9:56:50 Fentanyl I.V. 50 mcg Shankar Arsenio for [facility] Lai Cottrell RN sedation 9:59:32 Fentanyl I.V. 50 mcg Shankar Arsenio for [facility] Lai Cottrell RN sedation 9:59:35 Versed I.V. 1 mg Shankar Arsenio for [facility] Lai Cottrell RN sedation Procedure Log Time Note 8:49:00 Admit Source: Emergency department 8:49:05 Patient Height : 67.72 inches 8:49:07 Patient Weight : 165.35 lbs 8:49:32 Mounika ARENAS(R) sent for patient. Start room use. 8:49:34 Time tracking: Regular hours (M-F 7:00 - 5:00) 8:49:38 Plan of Care:Hemodynamics will remain stable., Cardiac rhythm will remain stable., Comfort level will be maintained., Respiratory function will remain adequate., Patient/ family verbilizes understanding of procedure., Procedure tolerated without complication., Recovers from procedure without complications.. 9:00:22 Insurance Payor : Private health insurance 9:02:43 Lab Result : Hemoglobin 12.8 g/dl 9:03:07 Lab Result : Creatinine 6.8 mg/dl 9:03:19 Procedure type changed to Cath procedure, Diagnostic procedure, LHC, LHC w/Coronaries w/Grafts, CIERRA, Sedation Charges, Moderate Sedation 25-39 minutes 9:03:23 Diagnostic Cath Status : Urgent 9:05:08 Patient arrived from Med II to CCL 1. Patient remains on bed/stretcher for procedure. 9:05:17 Signed procedure consent form obtained from patient. 9:05:19 Warm blankets applied, and edilia hugger turned on for patient comfort. 9:05:19 Correct patient and procedure confirmed by team. 9:05:20 ECG and BP/O2 sat monitors applied to patient. 9:05:21 Full Disclosure recording started 9:13:40 Vital chart was started 9:13:48 Rhythm: sinus bradycardia 9:14:02 H&P Date Dictated: 10/02/2020 Within 30 days and on chart.. 9:14:06 Pre-procedure instructions explained to patient. 9:14:07 Pre-op teaching completed and patient verbalized understanding. 9:14:09 Family in patients room. 9:14:11 Patient NPO since Midnight. 9:14:19 Patient allergic to Iodine 9:14:54 Patient allergic to Other allergySumatryptan 9:15:04 Is the patient allergic to Iodine/contrast media? Yes. 9:15:05 Was the patient premedicated? Yes 9:15:07 Is patient on blood thinner?No 9:15:12 ACC The patient was administered the following blood thiners within the last 24 hours: ACCLovenox 9:15:16 Bleeding risk 2.4%. 9:15:21 Patient diabetic? No. 9:15:26 Previous problem with sedation/anesthesia? No ? 9:15:32 Snore? No 9:15:33 Sleep apnea? No 9:15:34 Deviated septum? No 9:15:35 Opens mouth fully? Yes 9:15:35 Sticks out tongue? Yes 9:15:43 Airway obstruction? Yes COPD 9:16:13 0.9% NaCl kvo ml/hr I.V. was administered by Arsenio Cottrell RN; Per physician; pt is on dialysis Verbal order read back and verified. 9:16:14 Oxygen 2 l/min etCO2 Nasal cannula was administered by Arsenio Cottrell RN; used for procedure; Verbal order read back and verified. 9:16:18 Dentures? No ? 9:16:25 Pre procedure: right dorsailis pedis pulse 2+ Normal; easily identifiable; not easily obliterated 9:16:28 Patient pain scale 0/10 ?. 9:16:36 IV patent on arrival in right forearm with 0.9% NaCl at [facility]. 9:16:39 Lab results completed and on chart. 9:16:43 Risk of Mortality: 0.4 9:16:56 Risk of blood transfusion: 2.4 9:17:01 Risk of JUNIOR: 24.6 9:17:10 Benadryl 50 mg I.V. was administered by Arsenio Cottrell RN; used for procedure; for preop iodine allergy Verbal order read back and verified. 9:17:37 Andre Ghotra MD present and monitoring patient for TIVA. 9:17:44 Mellissa Pope Visual Merchandising Assistant present for CIERRA. 9:18:37 Baseline sample Acquired. 9:18:45 Alarms reviewed by Ruchi Riojas 9:19:26 5) <15 or on dialysis Very severe, or end stage kidney failure. 9:19:41 Maximum allowable contrast dose (3.7 X eGFR X 0.75) Pt on Dialysis--24 ml. 9:19:43 Hurricaine Chaplin 1 Sprays P.O. was administered by Arsenio Cottrell RN; Per physician; Verbal order read back and verified. 9:19:52 Refer to Anesthesia Notes for Sedation Medications was administered by Arsenio Cottrell RN; ; Verbal order read back and verified. 9:24:09 IV Extension Set opened to sterile field. 9:24:14 Use device set Femoral Dx 9:27:03 Fire Safety Assessment: A--An alcohol-based skin anteseptic being used preoperatively., C--Open oxygen or nitrous oxide is being used., D--An ESU, laser, or fiber-optic light is being used. 9:27:13 Physical assessment completed. ASA score P 3 - A patient with severe systemic disease as per Shankar Aguero MD. 9:27:19 Sedation plan: TIVA Medication:Propofol 9:29:00 Right groin site verified by team. 9:29:52 Final Timeout: patient, procedure, and site verified with staff and physician. All members of the team are in agreement. 9:30:00 Procedure started. 9:30:04 CIERRA started. 9:36:30 CIERRA completed. 9:37:10 Heparin Flush Bag (1000units/500ml NS) 2 bags added to field was administered by Shankar Aguero MD; used for procedure; Verbal order read back and verified. 9:37:30 Lidocaine 2% 20ml vial added to field was administered by Shankar Aguero MD; for local anesthetic; Verbal order read back and verified. 9:39:18 Pt transferred to table and prepped for [facility]. 9:39:25 ACIST Syringe (27582) opened to sterile field. 9:39:25 Bag Decanter (2002S) opened to sterile field. 9:39:26 Medline Cath Pack ([id number]) opened to sterile field. 9:39:28 ACIST Hand Control (14578) opened to sterile field. 9:39:29 ACIST Manifold (46241) opened to sterile field. 9:39:31 DIAGNOSTIC Multipack 5Fr catheter set ([id number]) opened to sterile field. 9:39:32 SHEATH 5FR [place] (FHA742) opened to sterile field. 9:39:33 EMERALD Guide Wire (790-255) opened to sterile field. 9:48:16 Versed 1 mg I.V. was administered by Arsenio Cottrell RN; for sedation; Verbal order read back and verified. 9:48:22 Fentanyl 50 mcg I.V. was administered by Arsenio Cottrell RN; for sedation; Verbal order read back and verified. 9:52:58 Fentanyl 50 mcg I.V. was administered by Arsenio Cottrell RN; for sedation; Verbal order read back and verified. 9:53:06 Versed 1 mg I.V. was administered by Arsenio Cottrell RN; for sedation; Verbal order read back and verified. 9:54:35 Zero performed for pressure channel P1 9:56:22 Local anesthetic to right femoral artery with Lidocaine 2% by Shankar Aguero MD.INITIAL ACCESS ONLY 9:56:31 A 5 Fr sheath was inserted into the Right Femoral artery 9:56:41 Versed 1 mg I.V. was administered by Arsenio Cottrell RN; for sedation; Verbal order read back and verified. 9:56:50 Fentanyl 50 mcg I.V. was administered by Arsenio Cottrell RN; for sedation; Verbal order read back and verified. 9:58:20 A MULTIPACK JL 4.0 5Fr catheter was advanced over the wire and used for Left Coronary Angiography. 9:59:32 Fentanyl 50 mcg I.V. was administered by Arsenio Cottrell RN; for sedation; Verbal order read back and verified. 9:59:35 Versed 1 mg I.V. was administered by Arsenio Cottrell RN; for sedation; Verbal order read back and verified. 10:00:36 Catheter removed. 10:00:52 A MULTIPACK 3DRC 5Fr catheter was advanced over the wire and used for Right Coronary Angiography. 10:01:59 A MULTIPACK 3DRC 5Fr catheter was advanced over the wire and used for SVG Angiography.to Circ 10:02:18 A MULTIPACK 3DRC 5Fr catheter was advanced over the wire and used for Internal mammary arteriography.to LAD 10:02:25 Catheter removed. 10:03:39 A MULTIPACK Pigtail 5 Fr catheter was advanced over the wire and used for LV Angiography. 10:04:47 LV gram done using LUO 10:04:54 EF : 55 % 10:05:00 Injector settings: Ml/sec: 10, Volume: 20, 10:05:02 Catheter removed. 10:05:08 EXOSEAL 5Fr (EX500) opened to sterile field. 10:05:08 Tegaderm 4 x 4 (1626W) opened to sterile field. 10:06:18 Sheath removed intact; hemostasis achieved with Exoseal to the Right Femoral artery. 10:06:19 Procedure ended.(Physican Out) 10:06:42 Fluoroscopy time 01.60 minutes. 10:06:45 Fluoroscopy dose: 504 mGy 10:06:45 Flurop Dose total: 504 10:06:49 Dose Area Product 61.7 mGy/cm. 10:06:53 Contrast amount:Isovue 370 64ml. 10:07:00 Sharps counted by scrub and verified by R.N. 10:07:01 Insertion/operative site no bleeding no hematoma. 10:07:04 Post-op/insertion site Right Femoral artery dressed using a 4 x 4 and Tegaderm. 10:07:07 Post right femoral artery:stable, clean and dry 10:07:09 Post Procedure Pulses reassessed and unchanged 10:07:15 Post-procedure physical assessment completed. ASA score P 3 - A patient with severe systemic disease as per Shankar Aguero MD. 10:07:18 Post procedure rhythm: unchanged. 10:07:20 Estimated blood loss: 5 ml 10:07:22 Post procedure instruction explained to patient.Patient verbalizes understanding. 10:07:22 Patient needs reinforcement of post procedure teaching. 10:07:26 Procedure Complication : No complications 10:08:12 Procedure and supply charges have been captured, reviewed, submitted and are correct. 10:08:21 Operative report dictated upon procedure completion. 10:08:21 See physician's report for complete and final results. 10:10:28 Report given to [facility]. 10:10:44 Patient transfered to [facility] with Bed. 10:10:57 Procedure ended. 10:10:57 Full Disclosure recording stopped 10:11:55 Mounika Jacksonur RT(R) was relieved by Deneen Counts RT(R) as monitoring person 10:12:18 Deneen Counts RT(R) was relieved by Deneen Counts RT(R) as monitoring person 10:12:38 Vital chart was stopped Device Usage Item Name Manufacture Quantity Catalog Hospital Part Current Minimal L ot# / Number Charge Number Stock Stock Serial# Code IV Hospira 1 88221-11 [id number] 52165 428195 5 Extension Set ACIST Acist 1 77516 909699 549242 088627 20 Syringe Medical (53158) Systems Inc Bag Microtek 1 2001S 253553 19515 221776 5 Decanter Medical Inc. () Medline Medline 1 [id number] 455158 35653 760346 5 Cath Pack ([id number]) ACIST Hand Acist 1 32626 687003 877960 159282 5 Control Medical (93735) Systems Inc ACIST Acist 1 88129 725732 387650 111975 5 Manifold Medical (27245) Systems Inc DIAGNOSTIC Cardinal 1 SA7115 351979 76015 427324 30 Multipack Health 5Fr catheter set (XX2638) SHEATH 5FR Terumo 1 SQM407 435255 577676 375396 5 [place] (LHD235) EMERALD Cardinal 1 502-455 907800 525829 840576 5 Guide Wire Health (502-831) MULTIPACK Cardinal 1 735171 5 JL 4.0 5Fr Health catheter MULTIPACK Cardinal 1 396789 5 3DRC 5Fr Health catheter MULTIPACK Cardinal 1 306078 5 Pigtail 5 Health Fr catheter EXOSEAL 5Fr Cardinal 1 EX500 489904 400632 329963 10 (EX500) Health Tegaderm 4 3M 1 1626W 300913 517580 734738 5 x 4 (1626W) Signature Audit [place] Stage Time Signature Unsigned Intra-Procedure 10/11/2020 Arsenio Cottrell RN 10:11:43 AM Intra-Procedure 10/11/2020 Deneen 10:12:10 AM Counts RT(R) Intra-Procedure 10/11/2020 Shankar Lutz 10:12:37 AM Lai CR[address] [place] [address]
--- NOTE | ~2020-10-02 | HEMODYNAMI ---
PATIENT:ARBEN PIERCE MEDICAL RECORD: [id number] : 76 LOCATION:[facility].2129 ADMISSION DATE: 10/02/20 Generatedon::43 Patient name: ARBEN PIERCE Patient #: [id number] SSN: : 1980 Date of study: 10/08/2020 Page: Of Hemodynamic Procedure Report Patient Data Patient Demographics Procedure consent was obtained First Name: ARBEN Gender: Male Last Name: STAN : 1980 [facility] Initial: JERARDO Age: 40 year(s) Patient #: [id number] Race: Unknown Additional ID: [id number] Contact details Address: [address] [place] [address] State: [place] City: [place] Zip code: [address] Past Medical History Allergies Allergen Reaction Date Comments Reported Other allergy 10/08/2020 sumatriptan, iodine Admission Admission Data Admission Date: 10/02/2020 Admission Time: 19:27 Room #: 2129 Procedure Procedure Types Cath Procedure Peripheral Cath Diagnostic Procedure Miscellaneous Peritoneogram Procedure Description Procedure Date Procedure Date: 10/08/2020 Procedure Start Time: 9:18 Procedure Staff Name Function Tristin Howell MD Performing Physician RYAN WHITE RT Monitor Cristhian Cifuentes RT Scrub Ninfa Blood RN Nurse Linda Akbar RN Nurse Procedure Data Cath Procedure Fluoroscopy Diagnostic fluoroscopy Total fluoroscopy Time: time: 13.6 min 13.6 min Contrast Material Contrast Material Type Amount (ml) Isovue 300 25 Diagnostic catheters Device Type Used For End Catheter Placement Merit Impress KA2 5Fr 65CM catheter ([id number]) Procedure Medications Medication Administration Route Dosage Heparin Flush Bag added to field 1 bags (1000units/500ml NS) Hemodynamics Rest Pre Cath Intra NCS Post Cath Medications Time Medication Route Dose Verified Delivered Reason Notes Effect iveness by by 9:17:15 Heparin Flush added 1 Tristin Howell used for Bag to bags MD CROOK procedure (1000units/500ml field NS) Procedure Log Time Note 8:48:38 Use device set IR Diagnostic 8:48:39 Bag Decanter (2002S) opened to sterile field. 8:48:39 Sterile Angiographic Pack opened to sterile field. 8:48:40 Tegaderm 4 x 4 (1626W) opened to sterile field. 8:55:18 Cristhian Vane RT (R) (CV) sent for patient. Start room use. 8:55:20 Time tracking: Regular hours (M-F 7:00 - 5:00) 8:55:27 Patient received from Kite II to IR Alert and oriented. Tansferred to table in Supine position. 8:55:30 Signed procedure consent form obtained from patient. 8:55:32 Warm blankets applied, and edilia hugger turned on for patient comfort. 8:55:33 Correct patient and procedure confirmed by team. 8:55:42 H&P Date Dictated: 10/08/2020 Within 30 days and on chart.. 8:55:44 Pre-procedure instructions explained to patient. 8:55:48 Pre-op teaching completed and patient verbalized understanding. 8:55:52 Patient NPO since Midnight. 8:56:08 Patient allergic to Other allergysumatriptan, iodine 8:56:10 Is the patient allergic to Iodine/contrast media? Yes. 8:56:12 Was the patient premedicated? Yes 8:56:38 Patient diabetic? No. 8:56:39 8:56:53 Left abdomen area was prepped with chlora-prep and draped in sterile fashion 8:56:54 Alarms reviewed by Ruchi Riojas 8:56:54 Sharps counted by scrub and verified by Rufino 8:56:55 9:17:15 Heparin Flush Bag (1000units/500ml NS) 1 bags added to field was administered by Tristin Howell MD; used for procedure; Verbal order read back and verified. 9:17:35 Physician arrived 9:17:35 --------ALL STOP TIME OUT------ 9:17:36 Final Timeout: patient, procedure, and site verified with staff and physician. All members of the team are in agreement. 9:17:41 Left abdomen site verified by team. 9:18:22 Procedure started. 9:18:23 Full Disclosure recording started 9:22:59 GLIDE WIRE ANGLE 180cm (IL0866) opened to sterile field. 9:23:00 ROADRUNNER .035 145 glide wire (C32483) opened to sterile field. 9:23:03 A 0-6.com Impress KA2 5Fr 65CM catheter ([id number]) was opened to sterile field. 9:34:44 CXI Catheter 90cm (U46383) opened to sterile field. 9:41:13 Procedure ended.(Physican Out) 9:41:48 Fluoroscopy time 13.60 minutes. 9:42:02 Dose Area Product 174 mGy/cm. 9:42:10 Contrast amount:Isovue 300 25ml. 9:42:12 Sharps counted by scrub and verified by R.N. 9:42:23 Post-op/insertion site Left Abdominal area dressed using a gauze eyepad and tegaderm. 9:42:28 Procedure and supply charges have been captured, reviewed, submitted and are correct. 9:43:00 Patient transfered to [facility] with Bed. Device Usage Item Name Manufacture Quantity Catalog Hospital Part Current Minimal Lot# / Number Charge Number Stock Stock Serial# Code Bag Decanter Microtek 1 [id number] 59650 [id number] 5 () Medical Inc. Sterile Cardinal 1 [id number] 157865 953006 5 Angiographic Health Pack Tegaderm 4 x 3M 1 1626W 567738 423084 909569 5 4 (1626W) GLIDE WIRE Terumo 1 MK3892 465194 494998 934813 5 ANGLE 180cm (EM8762) [facility] 1 A46905 697704 158265 706623 5 .035 145 glide wire (Y97989) Merit Merit 1 [id number] 412436 095577 5 Impress KA2 Medical 5Fr 65CM catheter ([id number]) CXI Catheter [facility] 1 G99067 416825 352388 545873 5 90cm (A78794) Signature Audit [place] Stage Time Signature Unsigned Intra-Procedure 10/08/2020 RYAN WHITE RT 9:43:24 AM (R) [id number] [place] [address]
[~2020-10-02 17:01] MED LIST changes: +COREG12.5 MG PO; +COZAAR50 MG PO; +PHOSLO667 MG PO; +ROCALTROL0.25 MCG PO; +Senokot-S Tablet PO
[2020-10-02 17:51] VITALS: BP 160/92
[2020-10-02 18:06] LABS: RBC 2.38 10x6/uL (4.20-6.10); WBC 26.7 10x3/uL (4.8-10.8)
[2020-10-02 18:07] LABS: HEMOGLOBIN 7.1 g/dL (13.5-17.5); LYMPHOCYTE ABS# 0.45 10x3/uL (1.32-3.57); MCH 29.8 pg (26.0-34.0); MCHC 32.3 g/dL (31.0-37.0); MCV 92.4 fL (80.0-100.0); MEAN PLATELET VOLUME 9.1 fL (7.4-10.4); NEUTROPHIL ABS# 24.87 10x3/uL (1.78-5.38); PLATELET COUNT 266 10x3/uL (130-400); RDW 14.8 % (11.5-14.5)
--- NOTE | 2020-10-02 18:10 | NUR ---
CRITICAL LAB VALUE HGB 7.1 HCT 22.[address] ED [address] MARTIN NOTIFIED , NO FURTHER ORDERS GIVEN AT THIS TIME.
[2020-10-02 18:12] LABS: CALC OSMOLALITY 297 mosm/kg (275-300); CALCIUM 7.5 mg/dL (8.5-10.1); CARBON DIOXIDE 19.6 mmol/L (21.0-32.0); CHLORIDE - SERUM 95 mmol/L (98-107); CREATININE - SERUM 14.4 mg/dL (0.6-1.3); SODIUM 133 mmol/L (136-145); UREA NITROGEN 100 mg/dL (7-18); eGFR NON AFRICAN AMERICAN 4 mL/min (90-120)
[2020-10-02 18:13] LABS: INR 1.24 (0.85-1.17); PROTIME 14.4 SECONDS (11.6-15.0)
[2020-10-02 18:14] LABS: GLUCOSE 109 mg/dL (74-106)
[2020-10-02 18:34] LABS: ALBUMIN 2.9 g/dL (3.4-5.0); ALKALINE PHOSPHATASE 66 U/L (30-120); ALT (SGPT) 14 U/L (10-68); BILIRUBIN - TOTAL 0.37 mg/dL (0.2-1.3); CREATINE KINASE 122 UL (21-232)
[2020-10-02 19:20] LABS: EOSINOPHILS 2 % (0-7); LYMPHOCYTES 6 % (15-50); MONOCYTES 1 % (2-11); NEUTROPHILS 86 % (40-80); PLATELET ESTIMATE NORMAL
[2020-10-02 19:35] LABS: BILIRUBIN NEGATIVE (NEGATIVE); KETONE NEGATIVE (NEGATIVE); NITRITE NEGATIVE (NEGATIVE); UROBILINOGEN NORMAL mg/dL (< 2)
[2020-10-02 19:36] LABS: BACTERIA FEW HPF (NONE SEEN)
[2020-10-02 20:00] VITALS: BP 166/79
[2020-10-02 20:35] VITALS: BP 181/105; BMI 24.6
[2020-10-02 21:00] VITALS: BP 114/73; BP 115/73
[2020-10-02 22:00] VITALS: BP 113/79
[2020-10-02 23:00] VITALS: BP 119/80
[2020-10-03] VITALS (24 sets, daily range): BP systolic 111–163; BP diastolic 80–110; BMI 24.7
[2020-10-03 00:17] LABS: CKMB 0.7 U/L (0.0-3.6); CREATINE KINASE 97 UL (21-232)
[2020-10-03 00:18] LABS: TROPONIN-I 0.098 ng/mL (0.000-0.060)
[2020-10-03 06:26] LABS: BASOPHILS 0.4 % (0-2); EOSINOPHILS 0.3 % (0-7); IMMATURE GRANULOCYTES 0.4 % (0-5); LYMPHOCYTE ABS# 0.25 10x3/uL (1.32-3.57); LYMPHOCYTES 1.5 % (15-50); MCH 29.5 pg (26.0-34.0); MCHC 32.9 g/dL (31.0-37.0); MEAN PLATELET VOLUME 9.5 fL (7.4-10.4); MONOCYTES 3.5 % (2-11); NEUTROPHIL ABS# 15.65 10x3/uL (1.78-5.38); NEUTROPHILS 93.9 % (40-80); RDW 15.1 % (11.5-14.5)
[2020-10-03 06:34] LABS: HEMATOCRIT 32.5 % (42.0-54.0); HEMOGLOBIN 10.7 g/dL (13.5-17.5); MCV 89.5 fL (80.0-100.0); PLATELET COUNT 172 10x3/uL (130-400); RBC 3.63 10x6/uL (4.20-6.10); WBC 16.7 10x3/uL (4.8-10.8)
[2020-10-03 06:55] LABS: ALBUMIN 2.4 g/dL (3.4-5.0); ALKALINE PHOSPHATASE 61 U/L (30-120); ALT (SGPT) 14 U/L (10-68); BILIRUBIN - TOTAL 0.64 mg/dL (0.2-1.3); CALCIUM 7.3 mg/dL (8.5-10.1); CARBON DIOXIDE 18.9 mmol/L (21.0-32.0); CHLORIDE - SERUM 94 mmol/L (98-107); CHOL - HDL RATIO 3.8 ratio (2.3-4.9); CHOLESTEROL, TOTAL 161 mg/dL (0-200); CKMB 0.8 U/L (0.0-3.6); CREATINE KINASE 85 UL (21-232); CREATININE - SERUM 14.5 mg/dL (0.6-1.3); GLUCOSE 113 mg/dL (74-106); HDL CHOLESTEROL 42 mg/dL (32-96); LDL CHOLESTEROL 99 mg/dL (0-100); LDL-HDL RATIO 2.4 ratio (1.5-3.5); MAGNESIUM - SERUM 1.9 mg/dL (1.8-2.4); PHOSPHOROUS 8.8 mg/dL (2.5-4.9); PROTEIN - SERUM 6.4 g/dL (6.4-8.2); SODIUM 131 mmol/L (136-145); TRIGLYCERIDE 101 mg/dL (30-200); eGFR NON AFRICAN AMERICAN 4 mL/min (90-120)
[2020-10-03 07:01] LABS: CALC OSMOLALITY 297 mosm/kg (275-300); POTASSIUM - SERUM 4.7 mmol/L (3.5-5.1); TROPONIN-I 0.154 ng/mL (0.000-0.060); UREA NITROGEN 107 mg/dL (7-18)
[2020-10-03 07:35] LABS: PROTIME 14.9 SECONDS (11.6-15.0)
[2020-10-03 07:36] LABS: INR 1.29 (0.85-1.17)
[2020-10-03 07:55] LABS: PRO BNP 175318 pg/mL (0-125)
[2020-10-03 12:48] LABS: HEMATOCRIT 33.8 % (42.0-54.0); HEMOGLOBIN 11.2 g/dL (13.5-17.5)
[2020-10-03 13:22] LABS: CKMB 0.9 U/L (0.0-3.6); CREATINE KINASE 72 UL (21-232); TROPONIN-I 0.151 ng/mL (0.000-0.060)
--- NOTE | 2020-10-03 16:10 | NUR ---
DR REDMAN HERE SEEINIG PATIENT
--- NOTE | 2020-10-03 17:15 | NUR ---
laying in bed with eyes closed, no acute distess noted, call light in reach, will monitor
[2020-10-03 19:38] LABS: HEMATOCRIT 34.3 % (42.0-54.0); HEMOGLOBIN 11.6 g/dL (13.5-17.5)
[2020-10-04] VITALS (19 sets, daily range): BP systolic 105–141; BP diastolic 66–811
[2020-10-04 06:22] LABS: ALBUMIN 2.1 g/dL (3.4-5.0); ANION GAP 25.4 mmol/L (8-16); BILIRUBIN - TOTAL 0.67 mg/dL (0.2-1.3); CALCIUM 7.7 mg/dL (8.5-10.1); CARBON DIOXIDE 16.2 mmol/L (21.0-32.0); CREATININE - SERUM 15.2 mg/dL (0.6-1.3); MAGNESIUM - SERUM 2.2 mg/dL (1.8-2.4); POTASSIUM - SERUM 4.6 mmol/L (3.5-5.1); PROTEIN - SERUM 6.3 g/dL (6.4-8.2); VANCOMYCIN - RANDOM 13.9 ug/mL (10.0-20.0)
--- NOTE | 2020-10-04 09:07 | NUR ---
Nutrition follow-up: Pt NPO for PD cath revision today Labs reviewed Wt: 166# Recommend diet advance to renal post-surgery RDN follow-up: 10/07/20
--- NOTE | 2020-10-04 23:45 | NUR ---
HAS NOT VOIDED YET THIS SHIFT DESPITE THE BUMEX. DENIES ANY NEEDS AT PRESENT. CONT TO MONITOR. REC'D REPORT AND ASSUMED
[2020-10-05] VITALS (11 sets, daily range): BP systolic 109–155; BP diastolic 73–99
[2020-10-05 05:11] LABS: BASOPHILS 0.1 % (0-2); EOSINOPHILS 0 % (0-7); HEMATOCRIT 33.1 % (42.0-54.0); HEMOGLOBIN 11.1 g/dL (13.5-17.5); IMMATURE GRANULOCYTES 0.3 % (0-5); LYMPHOCYTES 2.4 % (15-50); MCHC 33.5 g/dL (31.0-37.0); MEAN PLATELET VOLUME 10.8 fL (7.4-10.4); MONOCYTES 5.7 % (2-11); NEUTROPHILS 91.5 % (40-80); RBC 3.83 10x6/uL (4.20-6.10); RDW 14.6 % (11.5-14.5)
[2020-10-05 05:14] LABS: MCV 86.4 fL (80.0-100.0); PLATELET COUNT 225 10x3/uL (130-400); WBC 12.5 10x3/uL (4.8-10.8)
[2020-10-05 05:32] LABS: ALBUMIN 2.1 g/dL (3.4-5.0); ANION GAP 25.7 mmol/L (8-16); BILIRUBIN - TOTAL 0.55 mg/dL (0.2-1.3); CALCIUM 7.9 mg/dL (8.5-10.1); CREATININE - SERUM 15.2 mg/dL (0.6-1.3); POTASSIUM - SERUM 4.7 mmol/L (3.5-5.1); PROTEIN - SERUM 6.2 g/dL (6.4-8.2); VANCOMYCIN - RANDOM 29.8 ug/mL (10.0-20.0)
--- NOTE | 2020-10-05 08:25 | NUR ---
375 ML VOID AT THIS TIME VIA URINAL. CLEAR YELLOW.
--- NOTE | 2020-10-05 12:20 | NUR ---
TRANSFERRED TO ROOM 2129 AT THIS TIME WITH ALL PERSONAL ITEMS VIA WHEELCHAIR AFTER REPORT CALLED TO RECIEVING NURSE. NO ACUTE DISTRESS NOTED. NO FURTHER ACTIONS.
--- NOTE | 2020-10-05 13:21 | NUR ---
ARRIVED FROM ICU, AMBULATING IN ROOM WITH CANE. DENIES ANY NEEDS. WILL START PTD AT 1400.
[2020-10-06 04:39] VITALS: BP 178/108
[2020-10-06 06:07] LABS: BASOPHILS 0.1 % (0-2); EOSINOPHILS 0 % (0-7); HEMATOCRIT 33.7 % (42.0-54.0); HEMOGLOBIN 11.4 g/dL (13.5-17.5); IMMATURE GRANULOCYTES 0.7 % (0-5); LYMPHOCYTE ABS# 0.55 10x3/uL (1.32-3.57); LYMPHOCYTES 3.6 % (15-50); MCH 29.5 pg (26.0-34.0); MCHC 33.8 g/dL (31.0-37.0); MCV 87.1 fL (80.0-100.0); MEAN PLATELET VOLUME 10.6 fL (7.4-10.4); MONOCYTES 6.3 % (2-11); NEUTROPHILS 89.3 % (40-80); PLATELET COUNT 226 10x3/uL (130-400); RBC 3.87 10x6/uL (4.20-6.10); RDW 14.6 % (11.5-14.5); WBC 15.5 10x3/uL (4.8-10.8)
[2020-10-06 06:46] LABS: ALBUMIN 2.3 g/dL (3.4-5.0); ANION GAP 26.4 mmol/L (8-16); BILIRUBIN - TOTAL 0.66 mg/dL (0.2-1.3); CALCIUM 7.7 mg/dL (8.5-10.1); CARBON DIOXIDE 15.4 mmol/L (21.0-32.0); CREATININE - SERUM 15.3 mg/dL (0.6-1.3); PROTEIN - SERUM 6.7 g/dL (6.4-8.2); VANCOMYCIN - RANDOM 25.6 ug/mL (10.0-20.0)
[2020-10-06 07:12] LABS: POTASSIUM - SERUM 3.8 mmol/L (3.5-5.1)
[2020-10-06 08:27] VITALS: BP 151/84
[2020-10-06 12:10] VITALS: BP 130/81
--- NOTE | 2020-10-06 19:30 | NUR ---
REPORT RECIEVED FROM LENNOX MELENDEZ RN DAY SHIFT. STATES PT'S PD CATH IS NOT WORKING AND SHE HAS BEEN TALKING TO SAURABH. CURRENT ORDERS ARE TO INSTILL ACTIVASE INTO THE PD CATH TONIGHT AND THEN SEE HOW IT IS WHEN RENALS ROUND IN AM. LENNOX STATES SHE WAS TOLD THAT ONLY ICU/ER/OR HOUSE SUP CAN INSTILL THE ACTIVASE. SHE STATES THAT ICU SAID THEY DID NOT DO THAT, NOR DID ER. SHE NOTIFIED HOUSE SUP, IRIS SALAZAR AND WAS TOLD THAT THE ONCOMING HOUSE SUP COULD DO IT. INITIAL ROUNDS AND ASSESSMENT COMPLETED. PT RESTING IN BED. NONLABORED RESPIRATIONS ON ROOM AIR. SALINE LOCK TO RFA. RIGHT IJ TRIALYSIS THAT IS NOT TO BE USED DUE TO MRSA. 2100 SPOKE WITH HAIDER AZAR NO ONE HAD TO COME TO ROOM TO PERFORM THE ACTIVASE INSTALLATION. HAIDER AZAR WAS UNAWARE THAT SHE HAD BEEN DELEGATED THIS TASK. SHE REVIEWED ORDER AND ASKED FOR CLARIFICATION OF ORDER/TIME TO INSTILL, ETC SINCE THE DAY NURSE LENNOX HAD ONLY PASSED THIS ON VERBALLY, WITH NO WRITTEN ORDERS. 2230 PAGE TO RENALS ASKING FOR SAURABH CAMPBELL. RECIEVED IMMEDIATED CALL BACK FROM DR HERNANDEZ. ASKED FOR CLARIFICATION ON DISTILL TIME. HE WAS CONCERNED THAT ORDER HAS BEEN GIVEN ON DAY SHIFT AND HAD YET TO BE CARRIED OUT. 2330 CONE TENDER, EBONY MENDOZA, INSTILL 7CC/4MG OF ACTIVASE INTO PT'S PD CATH. AT 0000 THE ACTIVASE WAS REMOVED AND PD CATH WAS FLUSHED WITH NS WITHOUT ANY DIFFICULTY. NEW ORDERS WILL BE OBTAINED BY RENALS ON AM ROUNDS. PT RESTING AT THIS TIME. ABT INFUSING TO PIV. CALL LIGHT IN REACH.
[2020-10-06 20:00] VITALS: BP 169/101
--- NOTE | 2020-10-06 20:00 | NUR ---
INITIAL ROUNDS AND ASSESSMENT COMPLETED. PT RESTING IN BED. CALL LIGHT IN REACH. SEE ASSESSMENT.
[2020-10-07 05:22] VITALS: BP 157/99
[2020-10-07 08:10] LABS: BASOPHILS 0.2 % (0-2); EOSINOPHILS 3.7 % (0-7); HEMATOCRIT 32.3 % (42.0-54.0); HEMOGLOBIN 11.1 g/dL (13.5-17.5); IMMATURE GRANULOCYTES 1.1 % (0-5); LYMPHOCYTE ABS# 1.24 10x3/uL (1.32-3.57); LYMPHOCYTES 11.1 % (15-50); MCH 29.9 pg (26.0-34.0); MCHC 34.4 g/dL (31.0-37.0); MCV 87.1 fL (80.0-100.0); MEAN PLATELET VOLUME 10.7 fL (7.4-10.4); MONOCYTES 13.4 % (2-11); NEUTROPHIL ABS# 7.86 10x3/uL (1.78-5.38); NEUTROPHILS 70.5 % (40-80); PLATELET COUNT 219 10x3/uL (130-400); RBC 3.71 10x6/uL (4.20-6.10); RDW 14.7 % (11.5-14.5); WBC 11.1 10x3/uL (4.8-10.8)
[2020-10-07 08:17] LABS: ALBUMIN 2.1 g/dL (3.4-5.0); ANION GAP 26.5 mmol/L (8-16); BILIRUBIN - TOTAL 0.73 mg/dL (0.2-1.3); CALCIUM 7.2 mg/dL (8.5-10.1); CARBON DIOXIDE 16.3 mmol/L (21.0-32.0); CREATININE - SERUM 15.5 mg/dL (0.6-1.3); POTASSIUM - SERUM 3.8 mmol/L (3.5-5.1); PROTEIN - SERUM 6.2 g/dL (6.4-8.2); VANCOMYCIN - RANDOM 22.1 ug/mL (10.0-20.0)
--- NOTE | 2020-10-07 08:25 | NUR ---
AM MEDS GIVEN AT THIS TIME INCLUDING PRN PAIN MEDICATION, FRESH ICE WATER AT BEDSIDE. PT DENIES ANY FURTHER NEEDS. CLWR.
--- NOTE | 2020-10-07 08:52 | NUR ---
AM MEDS GIVEN AT THIS TIME, INCLUDING NEW ORDER FOR BP MEDS D/T INCREASED BP. RR EVEN NON LABORED, O2 INPLACE. NO FURTHER NEEDS VOICED, ASSISTED PT WITH BREAKFAST TRAY. CLWR.
--- NOTE | 2020-10-07 14:43 | OP ---
PATIENT NAME: ARBEN PIERCE MEDICAL RECORD: [id number] :76 LOCATION:D.M2 D.9 ADMISSION DATE:10/02/20 SURGEON: ARBEN WEEMS MD DATE OF OPERATION: 10/04/2020 REFERRED BY: Dr. Davis. PREOPERATIVE DIAGNOSES: Gram-positive cocci bacteremia associated with central dialysis catheter and additionally nonfunctioning peritoneal dialysis catheter. POSTOPERATIVE DIAGNOSES: Gram-positive cocci bacteremia associated with central dialysis catheter and additionally nonfunctioning peritoneal dialysis catheter. OPERATION PERFORMED: Flushing of peritoneal dialysis catheter, also flushed with heparin and a swab of the exit site for culture. Additionally, I removed his right internal jugular tunneled dialysis catheter under fluoroscopy and I inserted a 15 cm Trialysis acute short-term dialysis catheter via the right internal jugular vein. SURGEON: Arben Weems MD ANESTHESIA: General with LMA per [employer] PREOPERATIVE NOTE: This gentleman began dialysis last month I believe and initially I placed a peritoneal dialysis catheter here in the hospital, but he subsequently soon had to have a tunneled dialysis catheter placed for hemodialysis. Apparently, he has been able to do peritoneal dialysis; however, up until about 2 days ago when he says that his catheter suddenly stopped working and he developed a pinhole leak in the catheter adjacent to the connector. He came into the hospital quite ill and had gram-positive cocci on blood cultures. Last evening, the peritoneal dialysis nurse repaired the peritoneal dialysis catheter pinhole problem by shortening of the catheter and attaching the titanium connector. She did not try to flush the catheter. I am taking the patient to the OR at this time. I am going to try to flush his catheter and I am going to remove his central dialysis catheter. I will replace it with a Trialysis acute short term catheter if it appears that he is not going to be able to resume peritoneal dialysis soon. DESCRIPTION OF PROCEDURE: Under general anesthesia per [employer], the patient was prepped and draped in a sterile manner. The peritoneal dialysis catheter was accessed and I attempted to flush it with saline and found that it really would not flush. I flushed it then without the transverse set and I was able to flush the catheter with considerable pressure and with aspiration I found that there was a great deal of fibrin plugging present. I flushed the catheter with additional saline, attached to a new transfer set and then heparin locked the assembly with 30 mL of saline containing 5000 units of heparin. I also used swabs to culture the catheter exit site, although there was no drainage and there was no evidence grossly of infection there. That site was subsequently dressed with a Biopatch and a bordered adhesive gauze dressing. The patient's right internal jugular tunneled hemodialysis catheter was very secure. The Dacron felt cuff being well attached to the surrounding tissues within the tunnel. It was not loose at all and I could not remove it by Taxis. I used a hemostat to free the Dacron felt cuff. I made an incision at the base OPERATIVE REPORT [id number] ARBEN PIERCE of the neck over the catheter and exposed it, clamped it and then divided it and removed the external portion. I sent the segment with a cuff for culture. The segment was less than 3 inches in length and subsequently also sent less than 3 inches of the distal tip of the catheter also for culture. I removed the intravascular segment under fluoroscopy and over a guidewire. I attempted to pass the guidewire into the inferior vena cava, but was unsuccessful and subsequently just had to maintain position of the catheter in the right atrium, so it did not enter the right ventricle. I then over that wire inserted a new 15 cm long Trialysis catheter and it reached down into the right atrium. The guidewire was removed and the catheter lumens aspirated. They all returned blood easily. They were then flushed with saline, then heparin-locked, clamped and capped. The catheter was sutured in place with 2-0 Prolene. One additional 2-0 Prolene was used to close the wound around the catheter at the base of the neck. Sterile dressing including a Biopatch was applied. The patient was then awakened and in stable condition taken to the recovery room. Blood loss was minimal. Sponges, instruments and needles were accounted for. No drain was used and no surgical specimen was sent for histopathology, but 2 catheter segments were sent in the same container, each one less than 3 inches in length and labeled dialysis catheter segments. Also, cultures of the peritoneal dialysis catheter exit site were sent as swabs of the exit site. TRANSINT:[id number] Voice Confirmation ID: [id number] DOCUMENT ID: [id number] ARBEN WEEMS MD at 1443 CC: NICKIE SMITH MD [id number] DICTATION DATE: 10/04/20 140 CUSTOMER SPECIALIST: 10/04/20 180 ADM IN [facility] [address] [facility]
--- NOTE | 2020-10-07 15:00 | NUR ---
PT TAKEN TO DIALYSIS BY WHEELCHAIR AT THIS TIME.
--- NOTE | 2020-10-07 19:05 | NUR ---
pt lying in bed, awake alert denies any needs. no distress noted will cotninue to monitor
[2020-10-07 22:25] VITALS: BP 143/84
[2020-10-08] VITALS: BP 166/110
[2020-10-08 03:00] VITALS: BP 132/75
--- NOTE | 2020-10-08 03:38 | NUR ---
new 20 gauge PIV placed to right upper forearm, x1 stick pt tolerated well. old PIV dc'd d/t pt reports of burning/painful cath tip intact pressure held to site
[2020-10-08 05:16] LABS: BASOPHILS 0.2 % (0-2); EOSINOPHILS 2.1 % (0-7); HEMATOCRIT 37.5 % (42.0-54.0); HEMOGLOBIN 12.8 g/dL (13.5-17.5); IMMATURE GRANULOCYTES 1.9 % (0-5); LYMPHOCYTE ABS# 0.48 10x3/uL (1.32-3.57); MCH 29.6 pg (26.0-34.0); MCHC 34.1 g/dL (31.0-37.0); MCV 86.6 fL (80.0-100.0); MEAN PLATELET VOLUME 10.6 fL (7.4-10.4); MONOCYTES 4.8 % (2-11); NEUTROPHIL ABS# 10.36 10x3/uL (1.78-5.38); PLATELET COUNT 243 10x3/uL (130-400); RBC 4.33 10x6/uL (4.20-6.10); RDW 14.7 % (11.5-14.5); WBC 11.9 10x3/uL (4.8-10.8)
[2020-10-08 05:19] LABS: APTT 32.3 SECONDS (22.8-39.4); INR 1.11 (0.85-1.17); PROTIME 13.2 SECONDS (11.6-15.0)
[2020-10-08 05:35] LABS: ALBUMIN 2.3 g/dL (3.4-5.0); ANION GAP 21.5 mmol/L (8-16); BILIRUBIN - TOTAL 0.83 mg/dL (0.2-1.3); CALCIUM 8.3 mg/dL (8.5-10.1); POTASSIUM - SERUM 4.3 mmol/L (3.5-5.1); PROTEIN - SERUM 6.7 g/dL (6.4-8.2)
[2020-10-08 05:42] LABS: CARBON DIOXIDE 21.8 mmol/L (21.0-32.0); CREATININE - SERUM 10.7 mg/dL (0.6-1.3)
--- NOTE | 2020-10-08 08:40 | NUR ---
PT LEFT FLOOR WITH IR AT THIS TIME.
--- NOTE | 2020-10-08 09:45 | NUR ---
PT ARRIVED BACK AT THIS TIME, UNABLE TO FLUSH PD CATH DURING IR. WILL AWAIT FURTHER ORDERS.
--- NOTE | 2020-10-08 10:25 | NUR ---
PT AMBULATING HALLWAY WITH FAMILY MEMBER, NO DISTRESS NOTED.
--- NOTE | 2020-10-08 10:52 | NUR ---
AM MEDS GIVEN, PD HELD AT THIS TIME PER ORDER. PT AWAKE AND ALERT, PRN PAIN MEDICATION GIVEN ALSO. FRESH DRINK PLACED AT BEDSIDE. PT DENIES ANY FURTHER NEEDS. CLWR.
--- NOTE | 2020-10-08 12:57 | NUR ---
Nutrition Reassessment/Follow-up: Out of room this AM for PD cathagram. HD yesterday; noted to be feeling better since tx. Diet: Cardiac PO intake: 25% x 3 (10/06) No new wt; last wt: 166# (10/04) Labs noted: BUN 96, Cre 10.7, GFR 6, Glu 117, Ca 8.3, Alb 2.3, PO4 12.0 (10/04) Meds noted: Colace, Calcitriol, PhosLo, Bumex, Zofran, Florajen, Protonix, electrolyte protocol -Nutrition needs unchanged from initial assessment. -Change back to renal diet; last PO4 12.0. -Encourage PO intake and honor food preferences within diet restrictions. -Need new wt. -RD will follow up within 3 days.
--- NOTE | 2020-10-08 13:28 | NUR ---
PT SITTING UP IN BED WITH HOB RAISED, RR EVEN NON LABORED. PT DENIES ANY NEEDS AT THIS TIME. CLWR.
--- NOTE | 2020-10-08 14:30 | NUR ---
PRN BP MEDS GIVEN D/T ELEVATED BP DURING ROUTINE VS.
[2020-10-08 15:17] VITALS: BP 163/113
[2020-10-08 16:02] VITALS: BP 130/80
--- NOTE | 2020-10-08 19:25 | NUR ---
PT BACK TO ROOM FROM DIALYSIS, AWAKE, ALERT SITTINGUP IN BED EATING DINNER, DENIES ANY NEEDS. WILL CONTINE TO MONITOR
[2020-10-08 21:45] VITALS: BP 115/72
--- NOTE | 2020-10-08 22:16 | NUR ---
POSITIVE BLOOD CULTURES CALLED TO ANATOLIY CAMPBELL WITH RENAL, ORDER FOR RANDOM VANC LEVEL IN AM,
[2020-10-09 01:34] VITALS: BP 124/80
[2020-10-09 05:18] VITALS: BP 142/88
[2020-10-09 06:55] LABS: BASOPHILS 0.1 % (0-2); EOSINOPHILS 0.2 % (0-7); HEMATOCRIT 32.3 % (42.0-54.0); HEMOGLOBIN 10.9 g/dL (13.5-17.5); IMMATURE GRANULOCYTES 1.5 % (0-5); LYMPHOCYTES 6.6 % (15-50); MCH 29.6 pg (26.0-34.0); MCHC 33.7 g/dL (31.0-37.0); MCV 87.8 fL (80.0-100.0); MEAN PLATELET VOLUME 10.6 fL (7.4-10.4); MONOCYTES 7.1 % (2-11); NEUTROPHILS 84.5 % (40-80); PLATELET COUNT 271 10x3/uL (130-400); RBC 3.68 10x6/uL (4.20-6.10); RDW 14.7 % (11.5-14.5)
[2020-10-09 06:58] LABS: WBC 16.6 10x3/uL (4.8-10.8)
[2020-10-09 07:20] LABS: ALBUMIN 2.1 g/dL (3.4-5.0); ANION GAP 17.5 mmol/L (8-16); BILIRUBIN - TOTAL 0.62 mg/dL (0.2-1.3); CALCIUM 7.8 mg/dL (8.5-10.1); CARBON DIOXIDE 24.3 mmol/L (21.0-32.0); CREATININE - SERUM 8.6 mg/dL (0.6-1.3); POTASSIUM - SERUM 3.8 mmol/L (3.5-5.1); VANCOMYCIN - RANDOM 11.3 ug/mL (10.0-20.0)
[2020-10-09 08:00] VITALS: BP 148/88
--- NOTE | 2020-10-09 09:00 | NUR ---
AM MEDS GIVEN WITH FRESH DRINK. PT RR EVEN NON LABORED, NO FURTHER NEEDS VOICED. CLWR.
--- NOTE | 2020-10-09 14:20 | NUR ---
DR SMITH AT BEDSIDE, SPOKE WITH MD REGARDING USING NURSE PORT ON TRIALYSIS CATH, PER MD WE CAN INFUSE HIS MEDICATIONS THRU THE PURPLE NURSE PORT. PT AWARE.
[2020-10-09 17:33] VITALS: BP 156/91
--- NOTE | 2020-10-09 18:52 | NUR ---
pt lying in bed appears asleep, no distress noted will continue to monitor
[2020-10-09 21:29] VITALS: BP 145/88
[2020-10-10 00:03] LABS: SARS-CoV-2 ANTIGEN NEGATIVE- SARS-COV-2 (NEGATIVE)
[2020-10-10 00:53] VITALS: BP 129/78
[2020-10-10 05:35] VITALS: BP 149/89
[2020-10-10 07:22] LABS: BASOPHILS 0.2 % (0-2); EOSINOPHILS 6.5 % (0-7); HEMATOCRIT 34.8 % (42.0-54.0); HEMOGLOBIN 11.4 g/dL (13.5-17.5); IMMATURE GRANULOCYTES 1.5 % (0-5); LYMPHOCYTE ABS# 2.43 10x3/uL (1.32-3.57); LYMPHOCYTES 17.4 % (15-50); MCH 29.3 pg (26.0-34.0); MCHC 32.8 g/dL (31.0-37.0); MCV 89.5 fL (80.0-100.0); MONOCYTES 6.5 % (2-11); NEUTROPHIL ABS# 9.46 10x3/uL (1.78-5.38); NEUTROPHILS 67.9 % (40-80); PLATELET COUNT 320 10x3/uL (130-400); RBC 3.89 10x6/uL (4.20-6.10); WBC 13.9 10x3/uL (4.8-10.8)
[2020-10-10 07:38] LABS: ANION GAP 18.3 mmol/L (8-16); BILIRUBIN - TOTAL 0.64 mg/dL (0.2-1.3); CALCIUM 7.7 mg/dL (8.5-10.1); CARBON DIOXIDE 24.4 mmol/L (21.0-32.0); POTASSIUM - SERUM 3.7 mmol/L (3.5-5.1); PROTEIN - SERUM 5.8 g/dL (6.4-8.2); VANCOMYCIN - RANDOM 25.2 ug/mL (10.0-20.0)
[2020-10-10 08:04] VITALS: BP 120/84
[2020-10-10 08:49] VITALS: Ht 172.7 cm; Wt 75.3 kg
[2020-10-10 08:51] LABS: CHOL - HDL RATIO 3.7 ratio (2.3-4.9); LDL-HDL RATIO 2.3 ratio (1.5-3.5)
--- NOTE | 2020-10-10 11:06 | NUR ---
PATIENT AAOX4, NO S/S OF DISTRESS, RESP EVEN AND NON LABORED, MEDICATIONS ADMINSITERED WITH NO COMPLICATIONS, PATIENT WANTS MEDICATIONS FOR RESTLESS LEGS AND TO HELP SLEEP, WAFER POLISHING LEAD WORKER NEETU NOTIFIED, NO FURTHER NEEDS AT THIS TIME, ASHIA GU
--- NOTE | 2020-10-10 12:24 | NUR ---
Nutrition Follow-up: Ate 100% of breakfast this AM. Noted plans to remove trialysis following HD today with new hemosplit placement on 10/14. Diet: Renal PO intake: 50-100% No new wt; last wt: 166# (10/04) Last BM: 10/10 Labs noted: K+ 3.7, Glu 110, Ca 7.7, Alb 2.0 Meds noted: Colace, Calcitriol, PhosLo, Bumex, Florajen, Protonix, electrolyte protocol -Encourage PO intake and honor food preferences within diet restrictions. -Need new wt. -RD will follow up within 5-7 days.
[2020-10-10 19:07] VITALS: BP 149/80
[2020-10-11 00:25] VITALS: BP 140/82
[2020-10-11] MEDS ORDERED: ROPINIROLE HCL0.5 MG PO (01:35)
[2020-10-11 07:00] LABS: BASOPHILS 0.4 % (0-2); EOSINOPHILS 9.2 % (0-7); HEMATOCRIT 35.3 % (42.0-54.0); HEMOGLOBIN 11.4 g/dL (13.5-17.5); IMMATURE GRANULOCYTES 1.8 % (0-5); LYMPHOCYTE ABS# 1.99 10x3/uL (1.32-3.57); LYMPHOCYTES 18.8 % (15-50); MCH 29.4 pg (26.0-34.0); MCHC 32.3 g/dL (31.0-37.0); MEAN PLATELET VOLUME 10.1 fL (7.4-10.4); MONOCYTES 9.4 % (2-11); NEUTROPHILS 60.4 % (40-80); PLATELET COUNT 314 10x3/uL (130-400); RBC 3.88 10x6/uL (4.20-6.10); RDW 15.1 % (11.5-14.5); WBC 10.6 10x3/uL (4.8-10.8)
[2020-10-11 07:06] LABS: ANION GAP 14.6 mmol/L (8-16); BILIRUBIN - TOTAL 0.49 mg/dL (0.2-1.3); CALCIUM 8.1 mg/dL (8.5-10.1); CARBON DIOXIDE 27.1 mmol/L (21.0-32.0); CREATININE - SERUM 6.8 mg/dL (0.6-1.3); PHOSPHOROUS 6.5 mg/dL (2.5-4.9); POTASSIUM - SERUM 3.7 mmol/L (3.5-5.1); PROTEIN - SERUM 5.7 g/dL (6.4-8.2)
[2020-10-11 09:13] LABS: HEPATITIS C ANTIBODY <0.1 (0.0-0.9)
--- NOTE | 2020-10-11 09:51 | NUR ---
PATINT LYING SUPINE AAOX4, RESP EVEN AND NONLABORED, NO S/S OF DISTRESS, PATIENT TREATED FOR SHELLFISH ALLERGY, ALL CONSENTS SIGNED FOR HEART CATH, CIERRA, ANESTHESIA AND BLOOD, PATIENT PREPPED AND CLIPPED, NO FURTHER NEEDS AT THIS TIME, MORNING MEDS HELD PER PATIENT REQUEST UNTIL AFTER PROCEDURE, CLIR, BLP
--- NOTE | 2020-10-11 14:20 | NUR ---
I have reviewed this patient and I concur with the Shift Assessment completed by the Licensed Practical Nurse today this shift.
--- NOTE | 2020-10-11 14:51 | NUR ---
PATIENT SITTING HIGH FOWLERS AAOX4, SUTURES CLIPPED AND TRIALYSIS CATH REMOVED WITH NO COMPLICATIONS, PRESSURE APPLIED AND DRY DRESSING APPLIED WITH TEGADERM, PATIENT TOLERATED WITH NO COMPLICATIONS, DR. JUSTICE TALKED WITH PATIENT ABOUT PROCEDURE RESULTS, PD CATH WILL BE EXAMINED BY DR WEEMS Wednesday10/14/20, NUMERICAL CONTROL MACHINE MACHINIST FROM DIALYSIS IS TO SPEAK WITH PATIENT ON Wednesday10/14/20 WELL ABOUT HIM BEING HOMELESS, NO FURTHER NEEDS AT THIS TIME, ASHIA GU
--- NOTE | 2020-10-11 15:35 | NUR ---
IV ACESS OBTAINED X1 STICK LEFT FOREARM, PATIENT TOLERATED WITH NO COMPLAINTS, OV FLUIDS HANGING, NO FURTHER NEEDS AT THIS TIME, ASHIA GU
[2020-10-11 20:37] VITALS: BP 184/104
[2020-10-12 05:18] VITALS: BP 159/93
[2020-10-12 05:56] LABS: BASOPHILS 0.3 % (0-2); EOSINOPHILS 4.3 % (0-7); HEMATOCRIT 33.4 % (42.0-54.0); HEMOGLOBIN 10.8 g/dL (13.5-17.5); LYMPHOCYTE ABS# 1.76 10x3/uL (1.32-3.57); LYMPHOCYTES 13.3 % (15-50); MCH 29.1 pg (26.0-34.0); MCHC 32.3 g/dL (31.0-37.0); MEAN PLATELET VOLUME 9.7 fL (7.4-10.4); MONOCYTES 10.1 % (2-11); NEUTROPHIL ABS# 9.38 10x3/uL (1.78-5.38); PLATELET COUNT 334 10x3/uL (130-400); RBC 3.71 10x6/uL (4.20-6.10); RDW 14.8 % (11.5-14.5); WBC 13.2 10x3/uL (4.8-10.8)
[2020-10-12 06:20] LABS: ALBUMIN 2.3 g/dL (3.4-5.0); ANION GAP 18.2 mmol/L (8-16); BILIRUBIN - TOTAL 0.46 mg/dL (0.2-1.3); CALCIUM 7.8 mg/dL (8.5-10.1); CARBON DIOXIDE 23.6 mmol/L (21.0-32.0); CREATININE - SERUM 8.3 mg/dL (0.6-1.3); POTASSIUM - SERUM 3.8 mmol/L (3.5-5.1); VANCOMYCIN - RANDOM 29.4 ug/mL (10.0-20.0)
[2020-10-12 08:00] VITALS: BP 159/95
--- NOTE | 2020-10-12 08:28 | NUR ---
PATIENT AAOX4 STANDING AT SINK IN ROOM, NO S/S OF DISTRESS, RESP EVEN AND NON LABORED, MEDICATIONS ADMINISTERED WITH NO COMPLICATIONS, IV PAIN MEDS GIVEN FOR LEG PAIN, NO FURTHER NEEDS AT THIS MOMENT, ASHIA GU
[2020-10-12 12:00] VITALS: BP 138/86
--- NOTE | 2020-10-12 13:25 | NUR ---
I have reviewed this patient and I concur with the Shift Assessment completed by the Licensed Practical Nurse today this shift.
[2020-10-12 20:52] VITALS: BP 143/89
[2020-10-13 01:38] VITALS: BP 121/71
[2020-10-13 05:44] VITALS: BP 130/80
[2020-10-13 06:01] LABS: BASOPHILS 0.5 % (0-2); EOSINOPHILS 8.6 % (0-7); HEMATOCRIT 32.9 % (42.0-54.0); HEMOGLOBIN 10.6 g/dL (13.5-17.5); IMMATURE GRANULOCYTES 0.8 % (0-5); LYMPHOCYTE ABS# 2.26 10x3/uL (1.32-3.57); LYMPHOCYTES 17.9 % (15-50); MCH 29.3 pg (26.0-34.0); MCHC 32.2 g/dL (31.0-37.0); MCV 90.9 fL (80.0-100.0); MEAN PLATELET VOLUME 9.8 fL (7.4-10.4); MONOCYTES 8.9 % (2-11); NEUTROPHILS 63.3 % (40-80); PLATELET COUNT 336 10x3/uL (130-400); RBC 3.62 10x6/uL (4.20-6.10); RDW 14.9 % (11.5-14.5); WBC 12.6 10x3/uL (4.8-10.8)
[2020-10-13 06:21] LABS: ALBUMIN 2.1 g/dL (3.4-5.0); BILIRUBIN - TOTAL 0.47 mg/dL (0.2-1.3); CALCIUM 7.7 mg/dL (8.5-10.1); CARBON DIOXIDE 24.9 mmol/L (21.0-32.0); CREATININE - SERUM 9.8 mg/dL (0.6-1.3); POTASSIUM - SERUM 3.9 mmol/L (3.5-5.1); PROTEIN - SERUM 5.6 g/dL (6.4-8.2); VANCOMYCIN - RANDOM 24.1 ug/mL (10.0-20.0)
[2020-10-13 06:23] LABS: PHOSPHOROUS 8.9 mg/dL (2.5-4.9)
--- NOTE | 2020-10-13 07:00 | NUR ---
Standing in room by bedside, awake/alert/oriented, T/R self ad jose, cont of B/B with BRPs per self ad jose, denies pain/other discomfort at this time, call light/phone/water within reach, no s/s of acute distress observed.
[2020-10-13 08:07] VITALS: BP 126/83
[2020-10-13 12:06] VITALS: BP 155/85
[2020-10-13 16:07] LABS: AEROBE ID Final report (()); RESULT 1 Micrococcus luteus (())
[2020-10-13 16:55] VITALS: BP 149/101
[2020-10-13 20:00] VITALS: BP 157/91
[2020-10-14] VITALS: BP 160/89
[2020-10-14 04:00] VITALS: BP 104/59
--- NOTE | 2020-10-14 04:24 | NUR ---
PT CONSENTS SIGNED FOR PROCEDURE WITH DR. WEEMS THIS DAY. PT NPO AT MIDNIGHT. RR E/U VITALS STABLE. NO S/S OF DISTRESS. WILL CONTINUE TO MONITOR
--- NOTE | 2020-10-14 06:18 | NUR ---
I have reviewed this patient and I concur with the Shift Assessment completed by the Licensed Practical Nurse today this shift.
[2020-10-14 07:08] LABS: BASOPHILS 0.5 % (0-2); EOSINOPHILS 8.1 % (0-7); HEMATOCRIT 31.9 % (42.0-54.0); IMMATURE GRANULOCYTES 0.7 % (0-5); LYMPHOCYTE ABS# 2.58 10x3/uL (1.32-3.57); LYMPHOCYTES 16.9 % (15-50); MCHC 31.3 g/dL (31.0-37.0); MCV 92.5 fL (80.0-100.0); MEAN PLATELET VOLUME 9.7 fL (7.4-10.4); MONOCYTES 8.3 % (2-11); NEUTROPHIL ABS# 10.01 10x3/uL (1.78-5.38); NEUTROPHILS 65.5 % (40-80); PLATELET COUNT 322 10x3/uL (130-400); RBC 3.45 10x6/uL (4.20-6.10); RDW 15.4 % (11.5-14.5); WBC 15.3 10x3/uL (4.8-10.8)
--- NOTE | 2020-10-14 07:13 | NUR ---
RECEIVE SHIFT REPORT. RESTING IN BED. DENIES ANY NEEDS AT THIS TIME. BREAKFAST ORDER PROCEDURE IS SCHEDULED TOMORROW. WILL CONTINUE POC AND SAFETY PRECAUTIONS. DRESSING REMOVED FROM RIGHT NECK.
[2020-10-14 07:21] LABS: ALBUMIN 2.3 g/dL (3.4-5.0); BILIRUBIN - TOTAL 0.57 mg/dL (0.2-1.3); CALCIUM 8.1 mg/dL (8.5-10.1); CARBON DIOXIDE 22.4 mmol/L (21.0-32.0); CREATININE - SERUM 10.6 mg/dL (0.6-1.3); PROTEIN - SERUM 5.7 g/dL (6.4-8.2); VANCOMYCIN - RANDOM 21.1 ug/mL (10.0-20.0)
[2020-10-14 07:22] LABS: ANION GAP 18.1 mmol/L (8-16); POTASSIUM - SERUM 4.5 mmol/L (3.5-5.1)
--- NOTE | 2020-10-14 08:00 | TEE ---
PATIENT:ARBEN PIERCE MEDICAL RECORD: [id number] LOCATION:D.M2 D.212 AGE OF PATIENT: 40 ADMISSION DATE: 10/02/20 SEX: M REFERRING PHYSICIAN: INTERPRETING PHYSICIAN: ADRIANA WELLS MD TRANSESOPHAGEAL ECHOCARDIOGRAM Date: 10/11/20 CIERRA CHARGE Y INDICATIONS: ELAVATED WBC PREMEDICATIONS: PATIENT'S RESPONSE PROCEDURE DOPPLER MEASUREMENTS: LVIT LA PA RA LVOT RVOT Asc. Ao AV Gradient Peak AV Mean AV Area MV Gradient Peak MV Mean MV Area INTERPRETATION: Doppler: 2-D: COLOR FLOW DOPPLER NORMAL SALINE STUDY: MISCELLANOUS: DIAGNOSIS: PLAN: Bed Setter:3 Dr. Capellan Avionics System Engineer: Sagar ORTEGA COMMENTS: DATE OF SERVICE: 10/11/2020 TECHNIQUE: After general sedation via TIVA via anesthesia, the transesophageal Omniplane probe was placed in the distal esophagus and proximal stomach without difficulty. FINDINGS: As follows, marked LVH. LV internal dimensions are normal. Wall motion is normal. EF is greater than or equal to 55%. Aortic valve is tricuspid with good valve excursion. No significant AI. Left atrium appears TRANSESOPHAGEAL ECHOCARDIOGRAM REPORT [id number] ARBEN PIERCE normal. Left atrial appendage is well visualized with good contractility. Mitral valve is well visualized, it shows no prolapse. Manul-ai-hitt MR. No evidence of vegetation. Right-sided chambers appear grossly normal. Tricuspid valve has a large 1 cm x 2 cm vegetation with mild MR. At the end of the procedure, the transesophageal Omniplane probe was turned posteriorly and this shows minimal atherosclerotic debris at the descending aorta. During the procedure, the patient was monitored continuously with pulse oximetry, telemetry and noninvasive blood pressure monitoring. TRANSINT:[id number] Voice Confirmation ID: [id number] DOCUMENT ID: [id number] at 0800 CC: [id number] DICTATION DATE: 10/11/20 1031 COMMERCIAL SEWING INSTRUCTOR: 10/11/20 1429 ADM IN [place] [address] [place] [address]
[2020-10-14 08:23] VITALS: BP 101/52
[2020-10-14 12:22] VITALS: BP 155/98
[2020-10-14 16:04] VITALS: BP 153/83
[2020-10-14 21:23] VITALS: BP 141/85
[2020-10-15 01:48] VITALS: BP 159/93
--- NOTE | 2020-10-15 03:38 | NUR ---
I have reviewed this patient and I concur with the Shift Assessment completed by the Licensed Practical Nurse today this shift.
[2020-10-15 05:23] LABS: BASOPHILS 0.4 % (0-2); EOSINOPHILS 7.5 % (0-7); HEMATOCRIT 30.6 % (42.0-54.0); HEMOGLOBIN 9.6 g/dL (13.5-17.5); IMMATURE GRANULOCYTES 0.8 % (0-5); LYMPHOCYTE ABS# 2.08 10x3/uL (1.32-3.57); LYMPHOCYTES 15.1 % (15-50); MCH 29.3 pg (26.0-34.0); MCHC 31.4 g/dL (31.0-37.0); MCV 93.3 fL (80.0-100.0); MEAN PLATELET VOLUME 9.8 fL (7.4-10.4); MONOCYTES 8.5 % (2-11); NEUTROPHIL ABS# 9.36 10x3/uL (1.78-5.38); NEUTROPHILS 67.7 % (40-80); PLATELET COUNT 275 10x3/uL (130-400); RBC 3.28 10x6/uL (4.20-6.10); RDW 15.5 % (11.5-14.5); WBC 13.8 10x3/uL (4.8-10.8)
[2020-10-15 05:26] VITALS: BP 151/90
[2020-10-15 05:48] LABS: ALBUMIN 2.4 g/dL (3.4-5.0); BILIRUBIN - TOTAL 0.65 mg/dL (0.2-1.3); CALCIUM 7.9 mg/dL (8.5-10.1); CARBON DIOXIDE 22.2 mmol/L (21.0-32.0); CREATININE - SERUM 12.2 mg/dL (0.6-1.3); PHOSPHOROUS 8.6 mg/dL (2.5-4.9); PROTEIN - SERUM 6.3 g/dL (6.4-8.2); VANCOMYCIN - RANDOM 18.9 ug/mL (10.0-20.0)
[2020-10-15 05:58] LABS: ANION GAP 18.3 mmol/L (8-16); POTASSIUM - SERUM 5.5 mmol/L (3.5-5.1)
--- NOTE | 2020-10-15 07:00 | NUR ---
Lying in bed, awake/alert/oriented, T/R self ad jose, cont of B/B with BRPs per self ad jose, denies pain/other discomfort at this time, call light/phone within reach, NPO for procedure, no s/s of acute distress observed.
[2020-10-15 07:23] VITALS: BP 134/69
--- NOTE | 2020-10-15 08:32 | NUR ---
Off unit via bed in stable condition accompanied by staff members for procedure.
--- NOTE | 2020-10-15 10:00 | NUR ---
DR WEEMS REMOVED PATIENT'S PENN DUE TO PROXIMITY TO CATHETER-SH
--- NOTE | 2020-10-15 10:15 | NUR ---
Back to unit with Rt. Chest Hemosplit, report called by NICOLAS Han.
[2020-10-15 11:21] VITALS: BP 132/84
--- NOTE | 2020-10-15 13:49 | NUR ---
Nutrition Reassessment/Follow-up: Out of room for hemosplit placement this AM. Good/fair PO intake noted in chart (50-100%). Diet: NPO PO intake: 83% avg x 3 meals (10/13) No new wt; last wt: 166# (10/04) Labs noted: K+ 5.5, Ca 7.9, PO4 8.6, Alb 2.4, Glu 86 Meds noted: Colace, Calcitriol, PhosLo, Bumex, Florajen, Protonix, Zofran, electrolyte protocol Est needs: 7915-4853 kcal/day (30-35 kcal/kg actual BW) 90-100 g protein/day (1.2-1.3 g/kg actual BW) Fluid: 1000 mL + UOP or per MD Nutrition Goals: -PO intake >=75% of meals/snacks -Meet est fluid needs without fluid overload -Stable dry wt -Glu wnl Nutrition Intervention: -Encourage PO intake and honor food preferences within diet restrictions. -Offer Nepro with meals. -Need new wt. -RD will follow up within 7 days if pt still admitted.
[2020-10-15 16:40] VITALS: BP 117/75
--- NOTE | 2020-10-15 19:30 | NUR ---
MET WITH PT IN HIS ROOM. MAKING ROUNDS AND DOING ASSESSMENTS. HE HAS NO C/O AT THIS TIME. PT HAS A NEW RIGHT HEMISPLIT. HE HAS NOT C/O PAIN WITH THIS. HE HAS BEEN AMBULATING IN THE HALLS WITH A CANE.
[2020-10-15 20:00] VITALS: BP 130/72
--- NOTE | 2020-10-15 21:00 | NUR ---
NO C/O FROM PT. WATCHING TV.
[2020-10-16] VITALS: BP 148/87
--- NOTE | 2020-10-16 | NUR ---
RESTING QUIETLY IN HIS ROOM. HE HAS COLORING BOOKS TO OCCUPY HIS TIME. NO C/O.
--- NOTE | 2020-10-16 02:30 | NUR ---
PT HAS A VISITOR IN HIS ROOM. THEY ARE BOTH COLORING. NO C/O PT IS INDEPENDENT IN HIS ROOM.
--- NOTE | 2020-10-16 04:45 | NUR ---
PT AMBULATING OUT IN THE HALLWAY. HE WANTS TO TAKE A SHOWER. HIS NURSE LAST NIGHT, NEW, TOOK HIM TOWELS AND COVERED HIS HEMISPLIT WITH PLASTIC WRAP FOR THE SHOWER.
--- NOTE | 2020-10-16 07:00 | NUR ---
Lying in bed, awake/alert/oriented, T/R self ad jose, cont of B/B with BRPs per self ad jose, c/o generalized pain 8/10 described as aching, does not want pain meds at this time, call light/phone/water within reach, no s/s of acute distress observed.
[2020-10-16 07:43] LABS: BASOPHILS 0.3 % (0-2); EOSINOPHILS 2.9 % (0-7); HEMATOCRIT 28.8 % (42.0-54.0); HEMOGLOBIN 9.1 g/dL (13.5-17.5); IMMATURE GRANULOCYTES 0.5 % (0-5); LYMPHOCYTE ABS# 1.65 10x3/uL (1.32-3.57); LYMPHOCYTES 8.6 % (15-50); MCH 29.1 pg (26.0-34.0); MCHC 31.6 g/dL (31.0-37.0); MEAN PLATELET VOLUME 9.8 fL (7.4-10.4); MONOCYTES 7.6 % (2-11); NEUTROPHIL ABS# 15.31 10x3/uL (1.78-5.38); NEUTROPHILS 80.1 % (40-80); PLATELET COUNT 303 10x3/uL (130-400); RBC 3.13 10x6/uL (4.20-6.10); RDW 15.3 % (11.5-14.5)
[2020-10-16 07:45] LABS: WBC 19.1 10x3/uL (4.8-10.8)
[2020-10-16 08:08] LABS: ALBUMIN 2.5 g/dL (3.4-5.0); ANION GAP 23.1 mmol/L (8-16); BILIRUBIN - TOTAL 0.59 mg/dL (0.2-1.3); CALCIUM 7.6 mg/dL (8.5-10.1); CREATININE - SERUM 12.1 mg/dL (0.6-1.3); POTASSIUM - SERUM 5.1 mmol/L (3.5-5.1); PROTEIN - SERUM 6.4 g/dL (6.4-8.2); VANCOMYCIN - RANDOM 16.6 ug/mL (10.0-20.0)
--- NOTE | 2020-10-16 08:12 | NUR ---
Core Baker Tr reports BUN of 117, called Dr. Dueñas who states will get on dialysis schedule today
[2020-10-16 08:23] VITALS: BP 152/92
--- NOTE | 2020-10-16 10:30 | NUR ---
Off unit for dialysis via bed in stable condition accompanied by hospital staff.
--- NOTE | 2020-10-16 15:00 | NUR ---
Back from dialysis in stable condition via bed accompanied by hospital staff.
[2020-10-16 16:37] VITALS: BP 127/72
--- NOTE | 2020-10-16 19:30 | NUR ---
PT AMBULATING IN THE HALLS WITH A FRIEND. NO C/0 AT THAT TIME.
--- NOTE | 2020-10-16 20:45 | NUR ---
IN ROOM TO GIVE PT MEDS AND TO ASSESS. PT STATES THAT HIS LEGS HURT AND WHEN WAS HE GOING TO GET HIS LYRICA. I EXPLAINED THAT HE DID NOT HAVE THAT ORDERED. HE REFUSES HIS REQUIP. HIS RIGHT SHOULDER WHERE HIS HEMISPLIT IS LOCATED LOOKS GOOD. DRESSING DRY AND INTACT. PT HAD DIALYSIS TODAY. HE IS RESTING IN BED NOW. ASSESSMENT COMPLETED.
--- NOTE | 2020-10-16 22:11 | MORECARE ---
CASE MANAGEMENT DISCHARGE SUMMARY PATIENT: ARBEN PIERCE UNIT: [id number] ADM DATE: 10/02/20 AGE: 40 : 78 SEX: M ROOM/BED: D.2129 AUTHOR: REGINALD,DOC PHYSICIAN: REFERRING PHYSICIAN: GALE SCHMIDT MD DATE OF SERVICE: 10/16/20 Case Management Discharge Planning Summary COMMENTS ENTERED DATE: 10/11/20 2:42 CT COMMENT TYPE: Discharge Planning REVIEWER: Yoly Bergman CM spoke with Janay Ron with patient pathways and explained that patient will need outpatient hemodialysis chair upon discharge. DCP REVIEW SUMMARY ANTICIPATED D/C DATE: EXPECTED LOS : CASE STATUS: DCP Initiated INITIAL REVIEW: 10/02/2020 INITIAL REVIEWER: Yoly Bergman FINAL DISCHARGE DISPOSITION: : FINAL REVIEWER: FINAL REVIEW DATE: DCP Focus Questions & Answers QUESTION: ANSWER : PATIENT: ARBEN PIERCE ENCOUNTER: [id number] MEDICAL RECORD#: [id number] ADMISSION DATE: 10/02/2020 DISCHARGE DATE: ATTENDING MD: GALE DÍAZ : AGE: 40 MARITAL STATUS: S DC PLAN ID: [id number] FACILITY: [facility] PRINTED ON: 10/16/20 22:11 CT All edits/amendments must be made on the electronic document DICTATION DATE: 10/16/202209 SCHOOL CURRICULUM DEVELOPER: DOM 10/16/202209 RPT#: [id number] DC DATE: STATUS: ADM IN [facility] [address] [place] [address] END OF REPORT
--- NOTE | 2020-10-16 23:02 | MORECARE ---
CASE MANAGEMENT DISCHARGE SUMMARY PATIENT: ARBEN PIERCE UNIT: [id number] ADM DATE: 10/02/20 AGE: 40 : 78 SEX: M ROOM/BED: D.1159 AUTHOR: ARIANNA MONTELONGO PHYSICIAN: REFERRING PHYSICIAN: GALE SCHMIDT MD DATE OF SERVICE: 10/16/20 Case Management Discharge Planning Summary COMMENTS ENTERED DATE: 10/11/20 2:42 CT COMMENT TYPE: Discharge Planning REVIEWER: Yoly Bergman CM spoke with Janay Ron with patient pathways and explained that patient will need outpatient hemodialysis chair upon discharge. DCP REVIEW SUMMARY ANTICIPATED D/C DATE: EXPECTED LOS : CASE STATUS: DCP Initiated INITIAL REVIEW: 10/02/2020 INITIAL REVIEWER: Yoly Bergman FINAL DISCHARGE DISPOSITION: : FINAL REVIEWER: FINAL REVIEW DATE: DCP Focus Questions & Answers DCP Evaluation QUESTION: ANSWER Family / Caregiver's ability to cope with chronic illness: : c. Inadequate (Enables pt. to make bad choices, cannot meet pt's. needs, difficult family dynamics) Patient's current cognitive status: : *Oriented to person, place, situation, time and present Patient's ability to cope with chronic illness : d. No chronic illness Patient gives permission to discuss discharge plans with: (name, relationship and number) : NENITA KAUR- [phone] MITUL FLORES - [phone] Does the patient have the ability to pay for or attain post discharge needs / services? : N/A Functional screen assessment: : Basic needs can adequately be met by self Family / Caregiver's ability to cope with chronic illness: : c. Inadequate (Enables pt. to make bad choices, cannot meet pt's. needs, difficult family dynamics) Physical Status: : Independent with ADL's Is there a likelihood that the patient will require additional services to return to the preadmission environment? : Yes Living Arrangements: : Home with others Results of this evaluation have been discussed with: : Patient Patient with capacity for self-care or can be cared for in same environment as prior to hospitalization? : Yes Living arrangements comments: : ROOMATE Baseline cognitive status: : *Oriented to person, place, situation, time and present Medication Management: : Patient states they do not have transporation to clam picker medications Pharmacy name(s): : [facility] [address] Does Patient have transportation to get home and to follow-up medical appointments when discharged from the hospital? : Yes Would patient like to participate in any Care Coordination programs (if applicable): : Not applicable Comments: : SCAT BUS Does the patient have electricity at home? : Yes Does the patient have running water in their house? : Yes Equipment in use: : Other Other Equipment comments: : PD MACHINE AND PD SUPPLIES Mental health screen: : No mental health history Psychosocial status: : Independent adult (18-64) Abuse/Neglect: : Recreational drug use - History of Resources / Services in place: : Dialysis - home peritoneal Contact information for resources in use: : WILL NEED HEMODIALYSIS SET UP FOR D/C DCP Re-evaluation QUESTION: ANSWER Would patient like to participate in any Care Coordination programs (if applicable): : Not applicable PATIENT: ARBEN PIERCE ENCOUNTER: [id number] MEDICAL RECORD#: [id number] ADMISSION DATE: 10/02/2020 DISCHARGE DATE: ATTENDING MD: GALE DÍAZ : AGE: 40 MARITAL STATUS: S DC PLAN ID: [id number] FACILITY: [facility] PRINTED ON: 10/16/20 23:01 CT All edits/amendments must be made on the electronic document DICTATION DATE: 10/16/202300 REFINERY OPERATOR ALKYLATION: DOM 10/16/202300 RPT#: [id number] DC DATE: STATUS: ADM IN [facility] [address] [place] [address] END OF REPORT
--- NOTE | 2020-10-16 23:12 | MORECARE ---
CASE MANAGEMENT DISCHARGE SUMMARY PATIENT: ARBEN PIERCE UNIT: [id number] ADM DATE: 10/02/20 AGE: 40 : 78 SEX: M ROOM/BED: D.6890 AUTHOR: REGINALD,DOC PHYSICIAN: REFERRING PHYSICIAN: GALE SCHMIDT MD DATE OF SERVICE: 10/16/20 Case Management Discharge Planning Summary COMMENTS ENTERED DATE: 10/16/20 22:56 CT COMMENT TYPE: Discharge Planning REVIEWER: Yoly Bergman CM spoke with patient he states that he doesn't have a PCP. Pharmacy [facility] [address]. Patient states that he currently lives at [address] [place] [address]. He states that he has a roommate that lives with him. He states that he is going to be evicted because he hasn't paid the rent this month. He stated that he is trying to get his disability. He states that he has scat bus to transport to dialysis. Janay Ron notified of patient's address to set up dialysis out pt chair. It looks like patient is going to need 6 weeks of IV antibiotics on discharge. He most likely will be able to get this in dialysis. CM will continue to follow and assist as needed with d/c planning needs. ENTERED DATE: 10/11/20 2:42 CT COMMENT TYPE: Discharge Planning REVIEWER: Yoly Bergman CM spoke with Janay Ron with patient pathways and explained that patient will need outpatient hemodialysis chair upon discharge. DCP REVIEW SUMMARY ANTICIPATED D/C DATE: EXPECTED LOS : CASE STATUS: DCP Initiated INITIAL REVIEW: 10/02/2020 INITIAL REVIEWER: Yoly Bergman FINAL DISCHARGE DISPOSITION: : FINAL REVIEWER: FINAL REVIEW DATE: DCP Focus Questions & Answers DCP Evaluation QUESTION: ANSWER Family / Caregiver's ability to cope with chronic illness: : c. Inadequate (Enables pt. to make bad choices, cannot meet pt's. needs, difficult family dynamics) Patient's current cognitive status: : *Oriented to person, place, situation, time and present Patient's ability to cope with chronic illness : d. No chronic illness Patient gives permission to discuss discharge plans with: (name, relationship and number) : NENITA PIERCE - BROTHER- [phone] MITUL XiongSON - [phone] Does the patient have the ability to pay for or attain post discharge needs / services? : N/A Functional screen assessment: : Basic needs can adequately be met by self Family / Caregiver's ability to cope with chronic illness: : c. Inadequate (Enables pt. to make bad choices, cannot meet pt's. needs, difficult family dynamics) Physical Status: : Independent with ADL's Is there a likelihood that the patient will require additional services to return to the preadmission environment? : Yes Living Arrangements: : Home with others Results of this evaluation have been discussed with: : Patient Patient with capacity for self-care or can be cared for in same environment as prior to hospitalization? : Yes Living arrangements comments: : ROOMATE Baseline cognitive status: : *Oriented to person, place, situation, time and present Medication Management: : Patient states they do not have transporation to supervisor opening and picking medications [facility] Does Patient have transportation to get home and to follow-up medical appointments when discharged from the hospital? : Yes Would patient like to participate in any Care Coordination programs (if applicable): : Not applicable Comments: : SCAT BUS Does the patient have electricity at home? : Yes Does the patient have running water in their house? : Yes Equipment in use: : Other Other Equipment comments: : PD MACHINE AND PD SUPPLIES Mental health screen: : No mental health history Psychosocial status: : Independent adult (18-64) Abuse/Neglect: : Recreational drug use - History of Resources / Services in place: : Dialysis - home peritoneal Contact information for resources in use: : WILL NEED HEMODIALYSIS SET UP FOR D/C DCP Re-evaluation QUESTION: ANSWER Would patient like to participate in any Care Coordination programs (if applicable): : Not applicable PATIENT: ARBEN PIERCE ENCOUNTER: [id number] MEDICAL RECORD#: [id number] ADMISSION DATE: 10/02/2020 DISCHARGE DATE: ATTENDING MD: GALE DÍAZ : AGE: 40 MARITAL STATUS: S DC PLAN ID: [id number] FACILITY: [facility] PRINTED ON: 10/16/20 23:12 CT All edits/amendments must be made on the electronic document DICTATION DATE: 10/16/202311 FORENSIC INVESTIGATOR: DOM 10/16/202311 RPT#: [id number] DC DATE: STATUS: ADM IN [facility] [address] [place] [address] END OF REPORT
[2020-10-16 23:28] VITALS: BP 108/70
--- NOTE | 2020-10-16 23:54 | NUR ---
PT IS RESTING QUIETLY IN BED. NO C/O
[2020-10-17] VITALS: BP 103/52
[2020-10-17 04:00] VITALS: BP 102/59
--- NOTE | 2020-10-17 05:30 | NUR ---
PT IS SLEEPING. HIS FRIEND SPENT THE NIGHT WITH HIM. NO C/O NO NEEDS PT DID NOT WALK THE HALLS THIS SHIFT.
[2020-10-17 07:35] LABS: BASOPHILS 0.5 % (0-2); HEMOGLOBIN 8.7 g/dL (13.5-17.5); IMMATURE GRANULOCYTES 0.9 % (0-5); LYMPHOCYTE ABS# 2.07 10x3/uL (1.32-3.57); LYMPHOCYTES 19.5 % (15-50); MCH 28.7 pg (26.0-34.0); MCHC 31.1 g/dL (31.0-37.0); MCV 92.4 fL (80.0-100.0); MONOCYTES 13.4 % (2-11); NEUTROPHIL ABS# 6.14 10x3/uL (1.78-5.38); NEUTROPHILS 57.7 % (40-80); PLATELET COUNT 269 10x3/uL (130-400); RBC 3.03 10x6/uL (4.20-6.10); RDW 15.5 % (11.5-14.5)
[2020-10-17 08:00] LABS: BILIRUBIN - TOTAL 0.44 mg/dL (0.2-1.3); CALCIUM 7.3 mg/dL (8.5-10.1); CARBON DIOXIDE 25.1 mmol/L (21.0-32.0); PHOSPHOROUS 7.8 mg/dL (2.5-4.9); POTASSIUM - SERUM 5.1 mmol/L (3.5-5.1); PROTEIN - SERUM 5.1 g/dL (6.4-8.2); VANCOMYCIN - RANDOM 10.6 ug/mL (10.0-20.0)
[2020-10-17 08:15] LABS: WBC 10.6 10x3/uL (4.8-10.8)
[2020-10-17 08:22] VITALS: BP 104/61
--- NOTE | 2020-10-17 11:09 | OP ---
PATIENT NAME: ARBEN PIERCE MEDICAL RECORD: [id number] :76 LOCATION:D.M2 D.2129 ADMISSION DATE:10/02/20 SURGEON: ARBEN WEEMS MD DATE OF OPERATION: 10/15/2020 REFERRING PHYSICIAN: Artem Smith MD PREOPERATIVE DIAGNOSES: End-stage renal disease, dependent on hemodialysis, bacteremia due to infected central venous dialysis catheter, tricuspid valve endocarditis and nonfunctional peritoneal dialysis catheter. POSTOPERATIVE DIAGNOSES: End-stage renal disease, dependent on hemodialysis, bacteremia due to infected central venous dialysis catheter, tricuspid valve endocarditis and nonfunctional peritoneal dialysis catheter. OPERATION PERFORMED: Insertion of a right internal jugular 19-cm long HemoSplit tunneled dialysis catheter via the right internal jugular vein with ultrasound and fluoroscopic guidance under general anesthesia with LMA per CLIMATOLOGY TEACHER. PREOPERATIVE NOTE: Mr. Pierce is a 40-year-old white male patient who was hospitalized with sepsis and found to have Staph aureus and Staph epidermidis positive blood cultures. He has been diagnosed with tricuspid valve endocarditis and has had a prolonged bacteremia, which has cleared only with removal of all of his intravenous dialysis access. His last Trialysis was removed last week. He has returned to the operating room today on Wednesday to implant a tunneled dialysis catheter. He still has a peritoneal dialysis catheter, which is not functional due to fibrin sheathing I believe, but his social situation has changed so that it is not thought that he will be able to pursue peritoneal dialysis; however, I have not removed the catheter and according to the patient wishes it certainly likely that he will be returning to the operating room in the near future to have it removed. DESCRIPTION OF PROCEDURE: Under anesthetic the patient was placed in supine position and I examined him with duplex B-mode ultrasound and demonstrated normality with complete compressibility of the left internal jugular vein. I also demonstrated a normal appearing lumen in the right internal jugular vein which was compressible, although there was visible echogenic thrombus at about the level of the clavicular head. I elected to go ahead and try to place the new tunneled catheter from the right. Using ultrasound guidance, I placed a micropuncture needle directly through the skin at the base of the neck and into the proximal internal jugular vein. I then inserted a guidewire and a small caliber catheter, but I could not advance the guidewire proximal to the clavicular head, although I was able to subsequently pass a Glidewire across that area of stenosis or irregularity and into the right atrium. I then made an incision at that site in the neck and passed serial dilators and lastly a dilator peel-away sheath all under fluoroscopy. The 19 cm HemoSplit was inserted through an insertion site below the clavicle and placed in the subcutaneous tunnel up over the clavicle up to the primary cervical wound where it was then inserted through the peel-away sheath and that sheath was removed. Fluoroscopy demonstrated excellent positioning of the catheter without any complications. OPERATIVE REPORT [id number] ARBEN PIERCE The catheter was sutured to the skin at the exit site with 2-0 Prolene and the cervical incision closed with interrupted inverted 3-0 Vicryl. The catheter was aspirated, both lumens returned blood easily. They were then flushed with saline and then heparin-locked, clamped and capped. A Biopatch was placed on the catheter at the exit site and a standard CVL dressing and the cervical incision was sealed with Dermabond glue and dressed with Maxorb AG, Tegaderm and Cavilon skin prep. The patient was then awakened and kept in the head up position, taken to the recovery room. Blood loss during the operation was 10 mL or less. Sponges, instruments and needles were accounted for. No drain was used and no surgical specimen was submitted for histopathology. TRANSINT:[id number] Voice Confirmation ID: [id number] DOCUMENT ID: [id number] ARBEN WEEMS MD at 1109 CC: ARTEM SMITH MD [id number] DICTATION DATE: 10/15/20 1017 ADVERTISING CAMPAIGN MANAGER: 10/15/20 1458 ADM IN [facility] [address] [place] [id number]
--- NOTE | 2020-10-17 16:12 | MORECARE ---
CASE MANAGEMENT DISCHARGE SUMMARY PATIENT: ARBEN PIERCE UNIT: [id number] ADM DATE: 10/02/20 AGE: 40 : 78 SEX: M ROOM/BED: D.6249 AUTHOR: REGINALD,DOC PHYSICIAN: REFERRING PHYSICIAN: GALE SCHMIDT MD DATE OF SERVICE: 10/17/20 Case Management Discharge Planning Summary COMMENTS ENTERED DATE: 10/17/20 16:05 CT COMMENT TYPE: Discharge Planning REVIEWER: Justine Houston CM spoke with Janay, she is setting up a HD OP chair at [facility]. She will notify us when she has a chair time for the patient. ENTERED DATE: 10/16/20 22:56 CT COMMENT TYPE: Discharge Planning REVIEWER: Yoly Bergman CM spoke with patient he states that he doesn't have a PCP. Pharmacy [facility] [address]. Patient states that he currently lives at [address] [place] [address]. He states that he has a roommate that lives with him. He states that he is going to be evicted because he hasn't paid the rent this month. He stated that he is trying to get his disability. He states that he has scat bus to transport to dialysis. Janay Ron notified of patient's address to set up dialysis out pt chair. It looks like patient is going to need 6 weeks of IV antibiotics on discharge. He most likely will be able to get this in dialysis. CM will continue to follow and assist as needed with d/c planning needs. ENTERED DATE: 10/11/20 2:42 CT COMMENT TYPE: Discharge Planning REVIEWER: Yoly Bergman CM spoke with Janay Ron with patient pathways and explained that patient will need outpatient hemodialysis chair upon discharge. DCP REVIEW SUMMARY ANTICIPATED D/C DATE: EXPECTED LOS : CASE STATUS: DCP Initiated INITIAL REVIEW: 10/02/2020 INITIAL REVIEWER: Yoly Bergman FINAL DISCHARGE DISPOSITION: : FINAL REVIEWER: FINAL REVIEW DATE: DCP Focus Questions & Answers DCP Evaluation QUESTION: ANSWER Family / Caregiver's ability to cope with chronic illness: : c. Inadequate (Enables pt. to make bad choices, cannot meet pt's. needs, difficult family dynamics) Patient's current cognitive status: : *Oriented to person, place, situation, time and present Patient's ability to cope with chronic illness : d. No chronic illness Patient gives permission to discuss discharge plans with: (name, relationship and number) : NENITA Xiong BROTHLYUDMILA- [phone] MITUL FLORES - [phone] Does the patient have the ability to pay for or attain post discharge needs / services? : N/A Functional screen assessment: : Basic needs can adequately be met by self Family / Caregiver's ability to cope with chronic illness: : c. Inadequate (Enables pt. to make bad choices, cannot meet pt's. needs, difficult family dynamics) Physical Status: : Independent with ADL's Is there a likelihood that the patient will require additional services to return to the preadmission environment? : Yes Living Arrangements: : Home with others Results of this evaluation have been discussed with: : Patient Patient with capacity for self-care or can be cared for in same environment as prior to hospitalization? : Yes Living arrangements comments: : ROOMATE Baseline cognitive status: : *Oriented to person, place, situation, time and present Medication Management: : Patient states they do not have transporation to tile picker medications Pharmacy name(s): : [facility] Does Patient have transportation to get home and to follow-up medical appointments when discharged from the hospital? : Yes Would patient like to participate in any Care Coordination programs (if applicable): : Not applicable Comments: : SCAT BUS Does the patient have electricity at home? : Yes Does the patient have running water in their house? : Yes Equipment in use: : Other Other Equipment comments: : PD MACHINE AND PD SUPPLIES Mental health screen: : No mental health history Psychosocial status: : Independent adult (18-64) Abuse/Neglect: : Recreational drug use - History of Resources / Services in place: : Dialysis - home peritoneal Contact information for resources in use: : WILL NEED HEMODIALYSIS SET UP FOR D/C DCP Re-evaluation QUESTION: ANSWER Would patient like to participate in any Care Coordination programs (if applicable): : Not applicable PATIENT: ARBEN PIERCE ENCOUNTER: [id number] MEDICAL RECORD#: [id number] ADMISSION DATE: 10/02/2020 DISCHARGE DATE: ATTENDING MD: GALE DÍAZ : AGE: 40 MARITAL STATUS: S DC PLAN ID: [id number] FACILITY: [facility] PRINTED ON: 10/17/20 16:11 CT All edits/amendments must be made on the electronic document DICTATION DATE: 10/17/201610 PULLEY MAINTAINER: DOM 10/17/201610 RPT#: [id number] DC DATE: STATUS: ADM IN [facility] [address] [place] [address] END OF REPORT
[2020-10-17 16:49] VITALS: BP 102/62
[2020-10-17 21:57] VITALS: BP 107/62
--- NOTE | 2020-10-17 22:34 | NUR ---
NURSING MESSAGE SEEN AT THIS TIME ABOUT PRIOR CIERRA RESULTS NEEDING TO BE CLARIFIED TO RENAL. CARDIOLOGY RECONSULTED TO CLARIFIY RESULTS.
--- NOTE | 2020-10-18 01:14 | NUR ---
CIERRA RESULTS FROM 10/11 ARE IN THE FRONT OF THE CHART.
[2020-10-18 06:04] VITALS: BP 119/73
[2020-10-18 08:00] VITALS: BP 105/51
[2020-10-18 08:26] LABS: ALBUMIN 2.4 g/dL (3.4-5.0); ANION GAP 15.4 mmol/L (8-16); BILIRUBIN - TOTAL 0.43 mg/dL (0.2-1.3); CALCIUM 7.6 mg/dL (8.5-10.1); CARBON DIOXIDE 27.9 mmol/L (21.0-32.0); CREATININE - SERUM 6.5 mg/dL (0.6-1.3); POTASSIUM - SERUM 4.3 mmol/L (3.5-5.1); PROTEIN - SERUM 6.3 g/dL (6.4-8.2); VANCOMYCIN - RANDOM 23.2 ug/mL (10.0-20.0)
[2020-10-18 09:24] LABS: BASOPHILS 0.5 % (0-2); EOSINOPHILS 9.4 % (0-7); HEMATOCRIT 27.8 % (42.0-54.0); HEMOGLOBIN 8.8 g/dL (13.5-17.5); IMMATURE GRANULOCYTES 0.5 % (0-5); LYMPHOCYTE ABS# 1.67 10x3/uL (1.32-3.57); LYMPHOCYTES 15.1 % (15-50); MCH 29.6 pg (26.0-34.0); MCHC 31.7 g/dL (31.0-37.0); MCV 93.6 fL (80.0-100.0); MEAN PLATELET VOLUME 10.2 fL (7.4-10.4); MONOCYTES 13.6 % (2-11); NEUTROPHIL ABS# 6.76 10x3/uL (1.78-5.38); NEUTROPHILS 60.9 % (40-80); PLATELET COUNT 269 10x3/uL (130-400); RBC 2.97 10x6/uL (4.20-6.10); RDW 15.5 % (11.5-14.5); WBC 11.1 10x3/uL (4.8-10.8)
--- NOTE | 2020-10-18 14:55 | NUR ---
Nutrition Follow-up: POD 3 hemosplit placement. Eating well. Ate 100% of breakfast this AM. Diet: Renal No new wt; last wt: 166# (10/04) Labs noted: Na 135, K+ 4.3, Ca 7.6, Alb 2.4, PO4 7.8 (10/17) Meds noted: Colace, Calcitriol, Bumex, Florajen, Protonix -Encourage PO intake and honor food preferences within diet restrictions. -MD may consider PO4 binder 2/2 hyperphosphatemia. -Need new wt. -RD will follow up within 5-7 days if pt still admitted.
[2020-10-18 16:00] VITALS: BP 103/57
--- NOTE | 2020-10-18 18:50 | NUR ---
REPORT RECEIVED, PT CARE ASSUMED. PT AAOX4, AMBULATING AROUND UNIT WITH CANE. DENIES ANY NEEDS AT THIS TIME. CPOC.
[2020-10-18 21:28] VITALS: BP 131/75
[2020-10-19 00:36] VITALS: BP 118/65
[2020-10-19 06:25] LABS: BASOPHILS 0.8 % (0-2); EOSINOPHILS 11.3 % (0-7); HEMATOCRIT 25.3 % (42.0-54.0); HEMOGLOBIN 7.9 g/dL (13.5-17.5); IMMATURE GRANULOCYTES 0.5 % (0-5); LYMPHOCYTES 15.4 % (15-50); MCH 28.8 pg (26.0-34.0); MCHC 31.2 g/dL (31.0-37.0); MCV 92.3 fL (80.0-100.0); MEAN PLATELET VOLUME 9.7 fL (7.4-10.4); MONOCYTES 17.1 % (2-11); NEUTROPHILS 54.9 % (40-80); PLATELET COUNT 228 10x3/uL (130-400); RBC 2.74 10x6/uL (4.20-6.10); RDW 15.2 % (11.5-14.5); WBC 9.1 10x3/uL (4.8-10.8)
[2020-10-19 06:48] LABS: ANION GAP 17.1 mmol/L (8-16); BILIRUBIN - TOTAL 0.54 mg/dL (0.2-1.3); CALCIUM 7.7 mg/dL (8.5-10.1); CARBON DIOXIDE 23.6 mmol/L (21.0-32.0); PHOSPHOROUS 6.4 mg/dL (2.5-4.9); POTASSIUM - SERUM 4.7 mmol/L (3.5-5.1); PROTEIN - SERUM 5.5 g/dL (6.4-8.2); VANCOMYCIN - RANDOM 20.3 ug/mL (10.0-20.0)
[2020-10-19 06:50] LABS: CREATININE - SERUM 8.5 mg/dL (0.6-1.3)
[2020-10-19 08:26] VITALS: BP 120/62
--- NOTE | 2020-10-19 08:30 | NUR ---
PT ALERT AND ORIENTED, LYING IN BED WITH GIRL-FRIEND. TOOK ALL MEDICATIONS WITHOUT COMPLICATIONS NOTED OR REPORTED. NO COMPLAINTS OR CONCERNS AT THIS TIME. PT VERBALIZES UNDERSTANDING THAT HE WILL DISCHARGE POST DIALYSIS AND EXPRESSES EXCITMENT TO LEAVE. CL IN REACH, SRX2.
[2020-10-19] MEDS ORDERED: ALBUTEROL2.5 MG/3 M INH (09:20)
[2020-10-19] MEDS ORDERED: FEXOFENADINE HC60 MG PO (09:20)
[2020-10-19] MEDS ORDERED: FLORAJEN DIGES1 EACH PO (09:22)
[2020-10-19] MEDS ORDERED: TESSALON PERLE100 MG PO (09:22)
[2020-10-19] MEDS ORDERED: MUCINEX DM ER1 EAC1 PO (09:22)
[2020-10-19] MEDS ORDERED: COLACE100 MG PO (09:22)
[2020-10-19] MEDS ORDERED: BUMEX2 MG PO (09:23)
[2020-10-19] MEDS ORDERED: LYRICA75 MG PO (09:23)
[2020-10-19] MEDS ORDERED: VENTOLIN HFA [SP8 GM INH (10:13)
--- NOTE | 2020-10-19 11:43 | NUR ---
PT ALERT AND ORIENTED, ESCORTED TO DIALYSIS VIA WHEELCHAIR.
--- NOTE | 2020-10-19 12:50 | NUR ---
I have reviewed this patient and I concur with the Shift Assessment completed by the Licensed Practical Nurse today this shift.
--- NOTE | 2020-10-19 15:28 | NUR ---
PT ALERT AND ORIENTED, IN DIALYSIS.
--- NOTE | 2020-10-19 16:08 | NUR ---
PT AMBULATED OUT VIA SELF POST H.D. IV OUT TIP INTACT.
--- NOTE | 2020-10-20 14:51 | MORECARE ---
CASE MANAGEMENT DISCHARGE SUMMARY PATIENT: ARBEN PIERCE UNIT: [id number] ADM DATE: 10/02/20 AGE: 40 : 78 SEX: M ROOM/BED: D.7089 AUTHOR: REGINALD,DOC PHYSICIAN: REFERRING PHYSICIAN: GLAE SCHMIDT MD DATE OF SERVICE: 10/20/20 Case Management Discharge Planning Summary COMMENTS ENTERED DATE: 10/20/20 14:36 CT COMMENT TYPE: Discharge Planning REVIEWER: Yoly Bergman LATE ENTRY 10/18/20 CM received notification that patient's outpatient chair time is scheduled for [facility] at 6:30 for 7:00 chair time. [facility] at [address] [place] [address]. Plan for patient to have dialysis Sat in Hospital and then discharge home. Patient states that he will have ride to dialysis and home. Patient will start dialysis outpatient on Wednesday10/22/20. ENTERED DATE: 10/17/20 16:05 CT COMMENT TYPE: Discharge Planning REVIEWER: Justine Houston CM spoke with Janay, she is setting up a HD OP chair at [facility]. She will notify us when she has a chair time for the patient. ENTERED DATE: 10/16/20 22:56 CT COMMENT TYPE: Discharge Planning REVIEWER: Yoly Bergman CM spoke with patient he states that he doesn't have a PCP. Pharmacy [facility] [address]. Patient states that he currently lives at [address] [place] [address]. He states that he has a roommate that lives with him. He states that he is going to be evicted because he hasn't paid the rent this month. He stated that he is trying to get his disability. He states that he has scat bus to transport to dialysis. Janay Ron notified of patient's address to set up dialysis out pt chair. It looks like patient is going to need 6 weeks of IV antibiotics on discharge. He most likely will be able to get this in dialysis. CM will continue to follow and assist as needed with d/c planning needs. ENTERED DATE: 10/11/20 2:42 CT COMMENT TYPE: Discharge Planning REVIEWER: Yoly Bergman CM spoke with Janay Ron with patient pathways and explained that patient will need outpatient hemodialysis chair upon discharge. DCP REVIEW SUMMARY ANTICIPATED D/C DATE: EXPECTED LOS : CASE STATUS: DCP Initiated INITIAL REVIEW: 10/02/2020 INITIAL REVIEWER: Yoly Bergman FINAL DISCHARGE DISPOSITION: : FINAL REVIEWER: FINAL REVIEW DATE: DCP Focus Questions & Answers DCP Evaluation QUESTION: ANSWER Patient gives permission to discuss discharge plans with: (name, relationship and number) : NENITA PIERCE - [phone] MITUL FLORES - [phone] Patient's ability to cope with chronic illness : d. No chronic illness Patient's current cognitive status: : *Oriented to person, place, situation, time and present Family / Caregiver's ability to cope with chronic illness: : c. Inadequate (Enables pt. to make bad choices, cannot meet pt's. needs, difficult family dynamics) Physical Status: : Independent with ADL's Family / Caregiver's ability to cope with chronic illness: : c. Inadequate (Enables pt. to make bad choices, cannot meet pt's. needs, difficult family dynamics) Functional screen assessment: : Basic needs can adequately be met by self Does the patient have the ability to pay for or attain post discharge needs / services? : N/A Living Arrangements: : Home with others Is there a likelihood that the patient will require additional services to return to the preadmission environment? : Yes Baseline cognitive status: : *Oriented to person, place, situation, time and present Living arrangements comments: : ROOMATE Patient with capacity for self-care or can be cared for in same environment as prior to hospitalization? : Yes Results of this evaluation have been discussed with: : Patient Medication Management: : Patient states they do not have transporation to case picker medications Pharmacy name(s): : [facility] [address] Does Patient have transportation to get home and to follow-up medical appointments when discharged from the hospital? : Yes Comments: : SCAT BUS Would patient like to participate in any Care Coordination programs (if applicable): : Not applicable Does the patient have electricity at home? : Yes Does the patient have running water in their house? : Yes Equipment in use: : Other Other Equipment comments: : PD MACHINE AND PD SUPPLIES Mental health screen: : No mental health history Psychosocial status: : Independent adult (18-64) Abuse/Neglect: : Recreational drug use - History of Resources / Services in place: : Dialysis - home peritoneal Contact information for resources in use: : WILL NEED HEMODIALYSIS SET UP FOR D/C DCP Re-evaluation QUESTION: ANSWER Would patient like to participate in any Care Coordination programs (if applicable): : Not applicable PATIENT: ARBEN PIERCE ENCOUNTER: [id number] MEDICAL RECORD#: [id number] ADMISSION DATE: 10/02/2020 DISCHARGE DATE: 10/19/2020 ATTENDING MD: GALE DÍAZ : AGE: 40 MARITAL STATUS: S DC PLAN ID: [id number] FACILITY: [facility] PRINTED ON: 10/20/20 14:50 CT All edits/amendments must be made on the electronic document DICTATION DATE: 10/20/201449 TECHNOLOGY RISK INTERN: DOM 10/20/201449 RPT#: [id number] DC DATE:10/19/20 STATUS: DIS IN [facility] [address] [place] [address] END OF REPORT
--- NOTE | 2020-10-20 16:39 | MORECARE ---
CASE MANAGEMENT DISCHARGE SUMMARY PATIENT: ARBEN PIERCE UNIT: [id number] ADM DATE: 10/02/20 AGE: 40 : 78 SEX: M ROOM/BED: D.0119 AUTHOR: REGINALD,DOC PHYSICIAN: REFERRING PHYSICIAN: GALE SCHMIDT MD DATE OF SERVICE: 10/20/20 Case Management Discharge Planning Summary COMMENTS ENTERED DATE: 10/20/20 14:36 CT COMMENT TYPE: Discharge Planning REVIEWER: Yoly Bergman LATE ENTRY 10/18/20 CM received notification that patient's outpatient chair time is scheduled for [facility] at 6:30 for 7:00 chair time. [facility] at [address] [place] [address]. Plan for patient to have dialysis Sat in Hospital and then discharge home. Patient states that he will have ride to dialysis and home. Patient will start dialysis outpatient on Wednesday10/22/20. ENTERED DATE: 10/17/20 16:05 CT COMMENT TYPE: Discharge Planning REVIEWER: Justine Houston CM spoke with Janay, she is setting up a HD OP chair at [facility]. She will notify us when she has a chair time for the patient. ENTERED DATE: 10/16/20 22:56 CT COMMENT TYPE: Discharge Planning REVIEWER: Yoly Bergman CM spoke with patient he states that he doesn't have a PCP. Pharm[facility] [address]. Patient states that he currently lives at [address] [place] [address]. He states that he has a roommate that lives with him. He states that he is going to be evicted because he hasn't paid the rent this month. He stated that he is trying to get his disability. He states that he has scat bus to transport to dialysis. Janay Ron notified of patient's address to set up dialysis out pt chair. It looks like patient is going to need 6 weeks of IV antibiotics on discharge. He most likely will be able to get this in dialysis. CM will continue to follow and assist as needed with d/c planning needs. ENTERED DATE: 10/11/20 2:42 CT COMMENT TYPE: Discharge Planning REVIEWER: Yoly Bergman CM spoke with Janay Ron with patient pathways and explained that patient will need outpatient hemodialysis chair upon discharge. DCP REVIEW SUMMARY ANTICIPATED D/C DATE: EXPECTED LOS : CASE STATUS: DCP Initiated INITIAL REVIEW: 10/02/2020 INITIAL REVIEWER: Yoly Bergman FINAL DISCHARGE DISPOSITION: : FINAL REVIEWER: FINAL REVIEW DATE: DCP Focus Questions & Answers DCP Evaluation QUESTION: ANSWER Patient gives permission to discuss discharge plans with: (name, relationship and number) : NENITA PIERCE - [phone] MITUL FLORES - [phone] Patient's ability to cope with chronic illness : d. No chronic illness Patient's current cognitive status: : *Oriented to person, place, situation, time and present Family / Caregiver's ability to cope with chronic illness: : c. Inadequate (Enables pt. to make bad choices, cannot meet pt's. needs, difficult family dynamics) Physical Status: : Independent with ADL's Family / Caregiver's ability to cope with chronic illness: : c. Inadequate (Enables pt. to make bad choices, cannot meet pt's. needs, difficult family dynamics) Functional screen assessment: : Basic needs can adequately be met by self Does the patient have the ability to pay for or attain post discharge needs / services? : N/A Living Arrangements: : Home with others Is there a likelihood that the patient will require additional services to return to the preadmission environment? : Yes Baseline cognitive status: : *Oriented to person, place, situation, time and present Living arrangements comments: : ROOMATE Patient with capacity for self-care or can be cared for in same environment as prior to hospitalization? : Yes Results of this evaluation have been discussed with: : Patient Medication Management: : Patient states they do not have transporation to cloth picker medications Pharmacy name(s): : [facility] [address] Does Patient have transportation to get home and to follow-up medical appointments when discharged from the hospital? : Yes Comments: : SCAT BUS Would patient like to participate in any Care Coordination programs (if applicable): : Not applicable Does the patient have electricity at home? : Yes Does the patient have running water in their house? : Yes Equipment in use: : Other Other Equipment comments: : PD MACHINE AND PD SUPPLIES Mental health screen: : No mental health history Psychosocial status: : Independent adult (18-64) Abuse/Neglect: : Recreational drug use - History of Resources / Services in place: : Dialysis - home peritoneal Contact information for resources in use: : WILL NEED HEMODIALYSIS SET UP FOR D/C DCP Re-evaluation QUESTION: ANSWER Would patient like to participate in any Care Coordination programs (if applicable): : Not applicable PATIENT: ARBEN PIERCE ENCOUNTER: [id number] MEDICAL RECORD#: [id number] ADMISSION DATE: 10/02/2020 DISCHARGE DATE: 10/19/2020 ATTENDING MD: GALE DÍAZ : AGE: 40 MARITAL STATUS: S DC PLAN ID: [id number] FACILITY: [facility] PRINTED ON: 10/20/20 16:39 CT All edits/amendments must be made on the electronic document DICTATION DATE: 10/20/201638 EXERCISE INSTRUCT: DOM 10/20/201638 RPT#: [id number] DC DATE:10/19/20 STATUS: DIS IN [facility] [address] [place] [address] END OF REPORT
== END 2020-10-19 16:09 | disposition home or self-care (01) | DRG 314 ==
LOC: D.ER 17:01 → D.ICU 19:27 → D.M2 19:27
PROVIDERS: Family Medicine; Internal Medicine Interventional Cardiology; Internal Medicine Nephrology; Internal Medicine Pulmonary Disease; Radiology Vascular & Interventional Radiology; Surgery; ADMIT Emergency Medicine; ATTEND Emergency Medicine
PROC: 05PY33Z Removal of Infusion Device from Upper Vein, Percutaneous Approach (ICD-10-PCS; 2020-10-04)
PROC: 05HM33Z Insertion of Infusion Device into Right Internal Jugular Vein, Percutaneous Approach (ICD-10-PCS; 2020-10-04)
PROC: 3C1ZX8Z Irrigation of Indwelling Device using Irrigating Substance, External Approach (ICD-10-PCS; 2020-10-04 10:30)
PROC: 3E0M3GC Introduction of Other Therapeutic Substance into Peritoneal Cavity, Percutaneous Approach (ICD-10-PCS; 2020-10-08)
PROC: 0WW Anatomical Regions, General, Revision (ICD-10-PCS; principal; 2020-10-08 09:00)
PROC: 05HM33Z Insertion of Infusion Device into Right Internal Jugular Vein, Percutaneous Approach (ICD-10-PCS; 2020-10-15)
DX: T82.7XXA Infection and inflammatory reaction due to other cardiac and vascular devices, implants and grafts, initial encounter (principal); A41.9 Sepsis, unspecified organism; J96.01 Acute respiratory failure with hypoxia; N18.6 End stage renal disease; J18.9 Pneumonia, unspecified organism; I13.2 Hypertensive heart and chronic kidney disease with heart failure and with stage 5 chronic kidney disease, or end stage renal disease; J44.1 Chronic obstructive pulmonary disease with (acute) exacerbation; J44.0 Chronic obstructive pulmonary disease with (acute) lower respiratory infection; E87.1 Hypo-osmolality and hyponatremia; I50.32 Chronic diastolic (congestive) heart failure; N17.9 Acute kidney failure, unspecified; Y83.9 Surgical procedure, unspecified as the cause of abnormal reaction of the patient, or of later complication, without mention of misadventure at the time of the procedure; I25.10 Atherosclerotic heart disease of native coronary artery without angina pectoris; Z99.2 Dependence on renal dialysis; Z91.15 Patient's noncompliance with renal dialysis; E83.39 Other disorders of phosphorus metabolism

== ENCOUNTER 2020-10-29 16:19 | Emergency (ER) | payer OTHER ==
[~2020-10-29] VITALS: Ht 172.7 cm; Wt 72.7 kg
[~2020-10-29 16:19] MED LIST changes: +ALBUTEROL2.5 MG/3 M INH; +BUMEX2 MG PO; +COLACE100 MG PO; +FEXOFENADINE HC60 MG PO; +FLORAJEN DIGES1 EACH PO; +LYRICA75 MG PO; +MUCINEX DM ER1 EAC1 PO; +ROPINIROLE HCL0.5 MG PO; +TESSALON PERLE100 MG PO; +VENTOLIN HFA [SP8 GM INH
[2020-10-29 16:25] VITALS: BP 167/113; Ht 172.7 cm; Wt 72.7 kg
[2020-10-29 16:47] LABS: HEMOGLOBIN 11.9 g/dL (13.5-17.5); MCH 28.5 pg (26.0-34.0); MCHC 32.1 g/dL (31.0-37.0); MEAN PLATELET VOLUME 6.8 fL (7.4-10.4); RBC 4.16 10x6/uL (4.20-6.10); WBC 8.5 10x3/uL (4.8-10.8)
[2020-10-29 17:02] LABS: CALCIUM 8.4 mg/dL (8.5-10.1); CARBON DIOXIDE 23.4 mmol/L (21.0-32.0); CREATININE - SERUM 11.4 mg/dL (0.6-1.3); POTASSIUM - SERUM 4.4 mmol/L (3.5-5.1)
[2020-10-29 17:05] LABS: PLATELET COUNT 392 10x3/uL (130-400)
[2020-10-29 17:07] LABS: BILIRUBIN NEGATIVE (NEGATIVE); KETONE NEGATIVE (NEGATIVE); NITRITE NEGATIVE (NEGATIVE); UROBILINOGEN NORMAL mg/dL (< 2)
[2020-10-29 17:09] LABS: ALBUMIN 3.1 g/dL (3.4-5.0); BILIRUBIN - TOTAL 0.34 mg/dL (0.2-1.3); PROTEIN - SERUM 7.3 g/dL (6.4-8.2)
[2020-10-29] MEDS ORDERED: HYDROCODON-ACE1 EAC7 PO (18:11)
[2020-10-29 19:08] LABS: EOSINOPHILS 16 % (0-7); LYMPHOCYTES 25 % (15-50); MONOCYTES 5 % (2-11); NEUTROPHILS 54 % (40-80); PLATELET ESTIMATE NORMAL
== END 2020-10-29 18:20 | disposition home or self-care (01) ==
LOC: D.ER 16:19
PROVIDERS: Emergency Medicine
DX: K40.90 Unilateral inguinal hernia, without obstruction or gangrene, not specified as recurrent (principal); R10.30 Lower abdominal pain, unspecified

== ENCOUNTER 2020-11-25 23:52 | Emergency (ER) | payer OTHER ==
[~2020-11-25] VITALS: Ht 172.7 cm; Wt 63.6 kg
[~2020-11-25 23:52] MED LIST changes: +HYDROCODON-ACE1 EAC7 PO
[2020-11-26] VITALS: Ht 172.7 cm; Wt 63.6 kg
[2020-11-26 00:46] LABS: BASOPHILS 1.3 % (0-2); EOSINOPHILS 13.8 % (0-7); HEMATOCRIT 38.6 % (42.0-54.0); HEMOGLOBIN 12.6 g/dL (13.5-17.5); LYMPHOCYTES 8.8 % (15-50); MCH 29.8 pg (26.0-34.0); MCHC 32.6 g/dL (31.0-37.0); MCV 91.5 fL (80.0-100.0); MEAN PLATELET VOLUME 7.4 fL (7.4-10.4); MONOCYTES 6.4 % (2-11); NEUTROPHILS 69.7 % (40-80); RBC 4.22 10x6/uL (4.20-6.10); RDW 17.9 % (11.5-14.5); WBC 11.2 10x3/uL (4.8-10.8)
[2020-11-26 00:57] LABS: PLATELET COUNT 258 10x3/uL (130-400)
[2020-11-26 01:03] LABS: ANION GAP 20.6 mmol/L (8-16); CALCIUM 8.1 mg/dL (8.5-10.1); CARBON DIOXIDE 22.3 mmol/L (21.0-32.0); POTASSIUM - SERUM 3.9 mmol/L (3.5-5.1)
[2020-11-26 01:25] LABS: ALBUMIN 3.3 g/dL (3.4-5.0); BILIRUBIN - TOTAL 0.34 mg/dL (0.2-1.3); MAGNESIUM - SERUM 2.8 mg/dL (1.8-2.4); PROTEIN - SERUM 6.9 g/dL (6.4-8.2)
[2020-11-26 05:01] VITALS: BP 176/113
== END 2020-11-26 05:02 | disposition home or self-care (01) ==
LOC: D.ER 23:52
PROVIDERS: Family Medicine
DX: N18.6 End stage renal disease (principal); Z99.2 Dependence on renal dialysis; I25.10 Atherosclerotic heart disease of native coronary artery without angina pectoris; K40.90 Unilateral inguinal hernia, without obstruction or gangrene, not specified as recurrent; F17.210 Nicotine dependence, cigarettes, uncomplicated

== ENCOUNTER 2020-11-30 20:27 | Inpatient (IN) | payer OTHER ==
[~2020-11-30] VITALS: Ht 172.7 cm; Wt 68.0 kg
[2020-11-30 20:29] VITALS: BP 220/141
[2020-11-30 21:32] VITALS: BP 190/118
[2020-11-30 22:00] VITALS: BP 201/128
[2020-11-30 22:29] LABS: BASOPHILS 1.1 % (0-2); EOSINOPHILS 15.4 % (0-7); HEMATOCRIT 36.4 % (42.0-54.0); LYMPHOCYTES 16.5 % (15-50); MCH 30.1 pg (26.0-34.0); MCHC 33.1 g/dL (31.0-37.0); MCV 90.9 fL (80.0-100.0); MEAN PLATELET VOLUME 7.5 fL (7.4-10.4); MONOCYTES 9.6 % (2-11); NEUTROPHILS 57.4 % (40-80); RBC 4.01 10x6/uL (4.20-6.10); RDW 18.5 % (11.5-14.5); WBC 4.8 10x3/uL (4.8-10.8)
[2020-11-30 22:31] LABS: PLATELET COUNT 174 10x3/uL (130-400)
[2020-11-30 22:35] LABS: APTT 34.2 SECONDS (22.8-39.4); INR 1.12 (0.85-1.17); PROTIME 13.3 SECONDS (11.6-15.0)
[2020-11-30 22:47] LABS: ANION GAP 20.3 mmol/L (8-16); CALCIUM 7.9 mg/dL (8.5-10.1); CARBON DIOXIDE 20.7 mmol/L (21.0-32.0); CREATININE - SERUM 11.4 mg/dL (0.6-1.3)
[2020-11-30 23:00] VITALS: BP 183/120
[2020-11-30 23:01] LABS: BILIRUBIN - TOTAL 0.27 mg/dL (0.2-1.3); MAGNESIUM - SERUM 2.5 mg/dL (1.8-2.4); PROTEIN - SERUM 6.6 g/dL (6.4-8.2); TROPONIN-I 0.06 ng/mL (0.000-0.060)
[2020-12-01] VITALS (15 sets, daily range): BP systolic 112–191; BP diastolic 51–115
[2020-12-01 00:05] LABS: BILIRUBIN NEGATIVE (NEGATIVE); KETONE NEGATIVE mg/dL (< 1+); NITRITE NEGATIVE (NEGATIVE); UROBILINOGEN NORMAL mg/dL (< 2)
[2020-12-01 00:27] LABS: UDS - AMPHET NEGATIVE QUAL (NEGATIVE); UDS - BARB NEGATIVE QUAL (NEGATIVE); UDS - BENZO NEGATIVE QUAL (NEGATIVE); UDS - COCAINE NEGATIVE QUAL (NEGATIVE); UDS - OPIATE NEGATIVE QUAL (NEGATIVE); UDS - PCP NEGATIVE QUAL (NEGATIVE); UDS - THC NEGATIVE QUAL (NEGATIVE)
--- NOTE | 2020-12-01 09:28 | NUR ---
PHARMACY LABORATORY TECHNICIAN CALLED TO TALK WITH PT.
--- NOTE | 2020-12-01 12:00 | NUR ---
NIFEDIPINE DRIP STOPPED AT THIS TIME.
--- NOTE | 2020-12-01 21:57 | NUR ---
DR DIAS CONSULTED ABOUT PT GOING TO MED SURG VS ICU BED. PER ARUN, MORNING SHIFT WAS TOLD TO CANCEL ICU BED. PHARMACY BENEFITS COORDINATOR NOTIFIED ABOUT GETTING MED SURG BED.
[2020-12-02 06:52] LABS: EOSINOPHILS 14.9 % (0-7); HEMATOCRIT 37.9 % (42.0-54.0); HEMOGLOBIN 12.8 g/dL (13.5-17.5); LYMPHOCYTES 20.1 % (15-50); MCH 30.4 pg (26.0-34.0); MCHC 33.8 g/dL (31.0-37.0); MCV 89.9 fL (80.0-100.0); MEAN PLATELET VOLUME 7.2 fL (7.4-10.4); MONOCYTES 7.7 % (2-11); NEUTROPHILS 56.3 % (40-80); PLATELET COUNT 181 10x3/uL (130-400); RBC 4.21 10x6/uL (4.20-6.10); RDW 18.1 % (11.5-14.5); WBC 5.7 10x3/uL (4.8-10.8)
[2020-12-02 07:21] LABS: ANION GAP 26.2 mmol/L (8-16); CALCIUM 7.8 mg/dL (8.5-10.1); CARBON DIOXIDE 15.6 mmol/L (21.0-32.0); CREATININE - SERUM 13.1 mg/dL (0.6-1.3); VANCOMYCIN - RANDOM 28.2 ug/mL (10.0-20.0)
--- NOTE | 2020-12-02 07:39 | NUR ---
CALLED REPORT TO MED II NURSE, EZIO VALENZUELA.
--- NOTE | 2020-12-02 07:45 | NUR ---
PATIENT TRANSPORTED TO THE FLOOR WITH TECH, PIV INTACT TO RIGHT AC. DERPART ASSESSMENT DONE BY ANOTHER
[2020-12-02 07:54] LABS: POTASSIUM - SERUM 4.8 mmol/L (3.5-5.1)
[2020-12-02 07:55] LABS: PHOSPHOROUS 12.2 mg/dL (2.5-4.9)
[2020-12-02 09:37] VITALS: BP 138/84; BMI 22.8
--- NOTE | 2020-12-02 12:54 | NUR ---
BACK FROM DIALYSIS. B/P 124/76. HR 73.
[2020-12-02 14:16] VITALS: Ht 172.7 cm; Wt 68.0 kg
[2020-12-02 16:00] VITALS: BP 114/71
--- NOTE | 2020-12-02 19:36 | NUR ---
ALERT AND ORIENTED X4. UP AD DINORA. IV TO RT AC SL AND RT CHEST HEMOSPLIT. REPORTRD BY OFFGOING HE HAD DIALYSIS TODAY. DEIES ANY NEEDS AT THIS TIME.
[2020-12-02 21:55] VITALS: BP 119/71
[2020-12-03 02:21] VITALS: BP 110/62
[2020-12-03 05:41] LABS: BASOPHILS 0.8 % (0-2); EOSINOPHILS 16.8 % (0-7); HEMOGLOBIN 12.1 g/dL (13.5-17.5); LYMPHOCYTES 23.4 % (15-50); MCH 30.2 pg (26.0-34.0); MCHC 33.6 g/dL (31.0-37.0); MEAN PLATELET VOLUME 7.4 fL (7.4-10.4); MONOCYTES 8.8 % (2-11); NEUTROPHILS 50.2 % (40-80); PLATELET COUNT 164 10x3/uL (130-400); WBC 4.4 10x3/uL (4.8-10.8)
[2020-12-03 06:06] VITALS: BP 109/80
[2020-12-03 06:16] LABS: ANION GAP 21.3 mmol/L (8-16); CALCIUM 7.7 mg/dL (8.5-10.1); CARBON DIOXIDE 19.2 mmol/L (21.0-32.0); CREATININE - SERUM 10.3 mg/dL (0.6-1.3); POTASSIUM - SERUM 4.5 mmol/L (3.5-5.1); VANCOMYCIN - RANDOM 21.3 ug/mL (10.0-20.0)
[2020-12-03 06:18] LABS: PHOSPHOROUS 9.3 mg/dL (2.5-4.9)
[2020-12-03 08:00] VITALS: BP 136/79
--- NOTE | 2020-12-03 08:00 | NUR ---
Lying in bed on right side, eyes closed, respirations slow/deep/even, rouses easily with verbal stimulus, T/R self ad jose, cont of B/B with BRPs per self ad jose, denies pain/other discomfort at this time, call light/phone/water within reach, no s/s of acute distress observed.
[2020-12-03 12:00] VITALS: BP 139/76
[2020-12-03 16:00] VITALS: BP 153/85
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
--- NOTE | 2020-12-03 19:30 | NUR ---
RECIEVED SITTING UP ON SIDE OF THE BED. ALERT AND ORIENTED X4. UP AD DINORA. DENIES ANY NEEDS.
[2020-12-03 20:00] VITALS: BP 153/95
[2020-12-04 01:08] VITALS: BP 118/62
[2020-12-04 06:50] VITALS: BP 118/70
[2020-12-04 07:30] LABS: BASOPHILS 0.5 % (0-2); EOSINOPHILS 13.7 % (0-7); HEMATOCRIT 32.7 % (42.0-54.0); HEMOGLOBIN 11.1 g/dL (13.5-17.5); LYMPHOCYTES 20.2 % (15-50); MCH 30.6 pg (26.0-34.0); MCHC 33.9 g/dL (31.0-37.0); MCV 90.4 fL (80.0-100.0); MEAN PLATELET VOLUME 7.1 fL (7.4-10.4); MONOCYTES 7.6 % (2-11); PLATELET COUNT 158 10x3/uL (130-400); RBC 3.61 10x6/uL (4.20-6.10); RDW 18.1 % (11.5-14.5)
[2020-12-04 07:34] VITALS: BP 118/70
[2020-12-04 07:38] LABS: WBC 5.6 10x3/uL (4.8-10.8)
[2020-12-04 08:00] LABS: CALCIUM 7.3 mg/dL (8.5-10.1); CARBON DIOXIDE 22.5 mmol/L (21.0-32.0); CREATININE - SERUM 12.4 mg/dL (0.6-1.3); POTASSIUM - SERUM 4.5 mmol/L (3.5-5.1); VANCOMYCIN - RANDOM 18.5 ug/mL (10.0-20.0)
--- NOTE | 2020-12-04 08:00 | NUR ---
Lying in bed, awake/alert/oriented, T/R self ad jose, cont of B/B with BRPs per self ad jose, denies pain/other discomfort at this time, call light/phone/water within reach, no s/s of acute distress observed.
[2020-12-04 08:03] LABS: PHOSPHOROUS 9.3 mg/dL (2.5-4.9)
[2020-12-04 09:00] VITALS: BP 140/77
--- NOTE | 2020-12-04 09:41 | NUR ---
Chani JOSEPH speaking with pt about his meds at this time.
[2020-12-04] MEDS ORDERED: CATAPRES TTS-3 TRANSDERM (10:07)
[2020-12-04] MEDS ORDERED: Procardia XL PO (10:07)
--- NOTE | 2020-12-04 11:45 | NUR ---
Dialysis Coordinator: [facility] @ 6:20am. VADIM SUE.
--- NOTE | 2020-12-04 14:35 | NUR ---
Provided written/verbal discharge instructions/education to which pt stated understanding, currently has no IV access/cardiac telemetry, pt states he does not have anyone to call and does not have money for a taxi, oncology transplant network manager spoke with pt and called for his taxi, pt will have to remain under our care for approx 1 hour.
--- NOTE | 2020-12-04 16:00 | NUR ---
DC'd home to self care in stable condition via w/c accompanied by hospital staff, no s/s of acute distress observed.
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
--- NOTE | 2020-12-04 17:27 | MORECARE ---
CASE MANAGEMENT DISCHARGE SUMMARY PATIENT: ARBEN PIERCE UNIT: [id number] ADM DATE: 11/30/20 AGE: 40 : 76 SEX: M ROOM/BED: D.2113 AUTHOR: REGINALD,DOC PHYSICIAN: REFERRING PHYSICIAN: SANA DONALD MD DATE OF SERVICE: 12/04/20 Case Management Discharge Planning Summary COMMENTS ENTERED DATE: 12/04/20 17:14 CT COMMENT TYPE: Discharge Planning REVIEWER: Yoly Bergman CM called and set up Taxi on voucher for patient to go to [address] $ 32.00 but then patient left before Taxi arrived ENTERED DATE: 12/03/20 18:12 CT COMMENT TYPE: Discharge Planning REVIEWER: Ricardo Zhou CM met with patient to complete DC plan and to evaluate needs. This is a difficult case in that there are limited high school social science teacher available to this patient. Patient is homeless and stated that his person to notify is his ex-, Jamaal Pierce, . Patient stated that he cannot stay with her. Patient stated that he does not have transportation because his truck was impounded with all of his medications inside. Patient stated that he has no one he can stay with and that it's too hot for him walk back and forth from the [place] to his dialysis appointments on Wednesday, , Wednesday. Patient stated that he cannot stay in a senior care because they will not transport him back and forth to dialysis and he has to be out of the senior care every morning and checked in by evening. Again, patient stated that he overheats easily when walking and walking from his [place] to the senior care or dialysis is too much. Patient stated that he does not have Medicaid disability and he cannot utilize SCAT because he has to have an address and Medicaid. Patient stated that he does have a mailing address at [address] [place] [address], [place] [address] through his friend who brings his mail to him. Patient stated that he cannot live with this friend because his friend's landlord will not allow it. CM left message with [employer] [phone] to request that the patient be seen for Medicaid needs and possible Disability application. Patient stated that he fills his medications at [facility]. Patient stated that his primary care physician is Dr. Lance. At this time the patient has not agreed to a viable discharge plan or location. CM team suggestions for homeless senior care has been declined by patient. At this time, there is but one homeless senior care in [place] for men, [facility] and this does adequately cover the patient's needs. Other possible sheltering or food resources could be [employer] ([phone] - closes at 3pm) or [employer] ([phone] - closes at 4pm) but again this does not solve his transportation issue. Both facilities had closed at the time of this assessment. If his disability is confirmed, then perhaps other options could be available. It is conceivable that resources for this patient may be available to this patient through [facility] high school social science teacher for the patient's renal disability. A handout of [employer] food pantries and the [facility] senior care were given to the patient. CM will continue to follow and will assist as needed with dc plans/needs. DCP REVIEW SUMMARY ANTICIPATED D/C DATE: EXPECTED LOS : CASE STATUS: DCP Initiated INITIAL REVIEW: 11/30/2020 INITIAL REVIEWER: Ricardo Zhou FINAL DISCHARGE DISPOSITION: : FINAL REVIEWER: FINAL REVIEW DATE: DCP Focus Questions & Answers DCP Evaluation QUESTION: ANSWER Patient's current cognitive status: : *Oriented to person, place, situation, time and present Patient's ability to cope with chronic illness : d. No chronic illness Patient gives permission to discuss discharge plans with: (name, relationship and number) : ex-, Jamaal Pierce, Does the patient have the ability to pay for or attain post discharge needs / services? : No Functional screen assessment: : Basic needs can adequately be met by self Family / Caregiver's ability to cope with chronic illness: : a. Adequate (ability to meet patient's medical needs, ensures patient attends medical appts.) Physical Status: : Independent with ADL's Is there a likelihood that the patient will require additional services to return to the preadmission environment? : Yes Living Arrangements: : Homeless Patient with capacity for self-care or can be cared for in same environment as prior to hospitalization? 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 : No Would patient like to participate in any Care Coordination programs (if applicable): : Not applicable Does the patient have electricity at home? : No Does the patient have running water in their house? : No Equipment in use: : None Mental health screen: : No mental health history DCP Re-evaluation QUESTION: ANSWER Would patient like to participate in any Care Coordination programs (if applicable): : Not applicable PATIENT: ARBEN PIERCE ENCOUNTER: [id number] MEDICAL RECORD#: [id number] ADMISSION DATE: 11/30/2020 DISCHARGE DATE: 12/04/2020 ATTENDING MD: SANA JORGE : AGE: 40 MARITAL STATUS: S DC PLAN ID: [id number] FACILITY: [facility] PRINTED ON: 12/04/20 17:27 CT All edits/amendments must be made on the electronic document DICTATION DATE: 12/04/201726 BACK PAD INSPECTOR: DOM 12/04/201726 RPT#: [id number] DC DATE:12/04/20 STATUS: DIS IN [facility] [address] [place] [address] END OF REPORT
--- NOTE | 2020-12-05 17:18 | MORECARE ---
CASE MANAGEMENT DISCHARGE SUMMARY PATIENT: ARBEN PIERCE UNIT: [id number] ADM DATE: 11/30/20 AGE: 40 : 76 SEX: M ROOM/BED: D.2113 AUTHOR: REGINALD,DOC PHYSICIAN: REFERRING PHYSICIAN: SANA DONALD MD DATE OF SERVICE: 12/05/20 Case Management Discharge Planning Summary COMMENTS ENTERED DATE: 12/04/20 17:14 CT COMMENT TYPE: Discharge Planning REVIEWER: Yoly Bergman CM called and set up Taxi on voucher for patient to go to [address] $ 32.00 but then patient left before Taxi arrived ENTERED DATE: 12/03/20 18:12 CT COMMENT TYPE: Discharge Planning REVIEWER: Ricardo Zhou CM met with patient to complete DC plan and to evaluate needs. This is a difficult case in that there are limited marriage and family social worker available to this patient. Patient is homeless and stated that his person to notify is his ex-, Jamaal Pierce, . Patient stated that he cannot stay with her. Patient stated that he does not have transportation because his truck was impounded with all of his medications inside. Patient stated that he has no one he can stay with and that it's too hot for him walk back and forth from the [place] to his dialysis appointments on Wednesday, , Wednesday. Patient stated that he cannot stay in a mcc because they will not transport him back and forth to dialysis and he has to be out of the mcc every morning and checked in by evening. Again, patient stated that he overheats easily when walking and walking from his [place] to the mcc or dialysis is too much. Patient stated that he does not have Medicaid disability and he cannot utilize SCAT because he has to have an address and Medicaid. Patient stated that he does have a mailing address at [address] [place] [address], [place] [address] through his friend who brings his mail to him. Patient stated that he cannot live with this friend because his friend's landlord will not allow it. CM left message with [employer] [phone] to request that the patient be seen for Medicaid needs and possible Disability application. Patient stated that he fills his medications at [facility]. Patient stated that his primary care physician is Dr. Lance. At this time the patient has not agreed to a viable discharge plan or location. CM team suggestions for homeless mcc has been declined by patient. At this time, there is but one homeless mcc in [place] for [facility], [facility] and this does adequately cover the patient's needs. Other possible sheltering or food resources could be [employer] ([phone] - closes at 3pm) or [employer] ([phone] - closes at 4pm) but again this does not solve his transportation issue. Both facilities had closed at the time of this assessment. If his disability is confirmed, then perhaps other options could be available. It is conceivable that resources for this patient may be available to this patient through [facility] marriage and family social worker for the patient's renal disability. A handout of [place] food pantries and the [facility] mcc were given to the patient. CM will continue to follow and will assist as needed with dc plans/needs. DCP REVIEW SUMMARY ANTICIPATED D/C DATE: EXPECTED LOS : CASE STATUS: DCP Initiated INITIAL REVIEW: 11/30/2020 INITIAL REVIEWER: Ricardo Zhou FINAL DISCHARGE DISPOSITION: : FINAL REVIEWER: FINAL REVIEW DATE: DCP Focus Questions & Answers DCP Evaluation QUESTION: ANSWER Patient's current cognitive status: : *Oriented to person, place, situation, time and present Patient's ability to cope with chronic illness : d. No chronic illness Patient gives permission to discuss discharge plans with: (name, relationship and number) : ex-, Jamaal Pierce, Does the patient have the ability to pay for or attain post discharge needs / services? : No Functional screen assessment: : Basic needs can adequately be met by self Family / Caregiver's ability to cope with chronic illness: : a. Adequate (ability to meet patient's medical needs, ensures patient attends medical appts.) Physical Status: : Independent with ADL's Is there a likelihood that the patient will require additional services to return to the preadmission environment? : Yes Living Arrangements: : Homeless Patient with capacity for self-care or can be cared for in same environment as prior to hospitalization? 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 : No Would patient like to participate in any Care Coordination programs (if applicable): : Not applicable Does the patient have electricity at home? : No Does the patient have running water in their house? : No Equipment in use: : None Mental health screen: : No mental health history DCP Re-evaluation QUESTION: ANSWER Would patient like to participate in any Care Coordination programs (if applicable): : Not applicable PATIENT: ARBEN PIERCE ENCOUNTER: [id number] MEDICAL RECORD#: [id number] ADMISSION DATE: 11/30/2020 DISCHARGE DATE: 12/04/2020 ATTENDING MD: SANA JORGE : AGE: 40 MARITAL STATUS: S DC PLAN ID: [id number] FACILITY: [facility] PRINTED ON: 12/05/20 17:18 CT All edits/amendments must be made on the electronic document DICTATION DATE: 12/05/201717 SITE TECHNICIAN: DOM 12/05/201717 RPT#: [id number] DC DATE:12/04/20 STATUS: DIS IN [facility] [address] [place] [address] END OF REPORT
== END 2020-12-04 16:48 | disposition home or self-care (01) | DRG 304 ==
LOC: D.ER 20:27 → D.M2 23:15 → D.EDHOLD 23:15 → D.M2 12-02 06:05
PROVIDERS: Family Medicine; ADMIT Internal Medicine Nephrology; ATTEND Internal Medicine Nephrology
DX: I16.0 Hypertensive urgency (principal); N18.6 End stage renal disease; I33.0 Acute and subacute infective endocarditis; I12.0 Hypertensive chronic kidney disease with stage 5 chronic kidney disease or end stage renal disease; Z99.2 Dependence on renal dialysis; D63.1 Anemia in chronic kidney disease; Z91.19 Patient's noncompliance with other medical treatment and regimen; E83.39 Other disorders of phosphorus metabolism; I25.10 Atherosclerotic heart disease of native coronary artery without angina pectoris